=== PATIENT | female | born 1935 ===

== ENCOUNTER 2017-09-29 19:48 | Emergency (ER) | payer MEDICARE ==
--- NOTE | 2017-09-29 20:27 | C.PDOC ---
History Of Present Illness 81 year old female presents to the ED s/p falling at home. Patient reports she does not remember how she fell or what happened. Patient denies tripping, LOC, headache, visual changes, CP, SOB, palpitations. - HPI Chief Complaint (Nursing): Trauma History Per: Patient History/Exam Limitations: no limitations Onset/Duration Of Symptoms: Hrs Injury Occurred (Timing): Just Before Arrival Location Of Injury: Left: Face (lip) Recent travel outside of the [place]: No Additional History Per: Patient Past Medical History Reviewed: Historical Data, Nursing Documentation, Vital Signs Vital Signs: Last Vital Signs Temp 99.0 F 09/29/17 22:54 Pulse 71 09/29/17 23:16 Resp 19 09/29/17 23:16 BP 193/73 H 09/29/17 23:16 Pulse Ox 100 09/29/17 23:26 - Medical History PMH: HTN Surgical History: No Surg Hx Family History: States: Unknown Family Hx - Social History Hx Alcohol Use: No Hx Substance Use: No Review Of Systems Constitutional: Negative for: Fever, Chills Eyes: Negative for: Vision Change Cardiovascular: Negative for: Chest Pain, Palpitations Respiratory: Negative for: Shortness of Breath Skin: Positive for: Other (laceration) Neurological: Negative for: Headache, Dizziness Physical Exam - Physical Exam Appears: Non-toxic, No Acute Distress Skin: Normal Color, Warm, Dry Head: Atraumatic, Normacephalic Eye(s): bilateral: Normal Inspection, PERRL, EOMI Nose: No Discharge Oral Mucosa: Moist Lips: Laceration (2.5 cm upper lip) Neck: Normal ROM, No Midline Cervical Tenderness, Supple Chest: Symmetrical Cardiovascular: Rhythm Regular, No Murmur Respiratory: Normal Breath Sounds, No Rales, No Rhonchi, No Wheezing Gastrointestinal/Abdominal: Soft, No Tenderness, No Guarding, No Rebound Extremity: Normal ROM, No Tenderness, No Swelling Neurological/Psych: Oriented x3 Gait: Steady ED Course And Treatment - Laboratory Results Result Diagrams: 09/29/17 20:34 09/29/17 20:34 ECG: Interpreted By Me, Viewed By Me ECG Rhythm: Sinus Rhythm ECG Interpretation: Normal, No Acute Changes Interpretation Of ECG: NSR, normal tracings. Rate From EC (BPM) O2 Sat by Pulse Oximetry: 100 (ON RA) Pulse Ox Interpretation: Normal Progress Note: Patient refuses to be admitted, spoke with patient's son who states they will follow up with Dr. Camara tomorrow and he observe patient during the night. Laceration - Laceration Repair Upper Lip Wound Length (In cm): 2.5cm Description Of Wound: Linear Wound Cleansed With: Betadine, Sterile Saline Anesthesia: Lidocaine 1% Wound Examination: Irrigated With Saline, No FB With Wound Exploration Wound Closure: Suture (4) Suture Technique And Material Used: Nylon (6-o) Wound Complexity: Simple Medical Decision Making Medical Decision Making: Plan: * CT head * EKG * tetanus * UA * LAbs Disposition Discussed With Dr.: Soha Camara Doctor Will See Patient In The: Office Counseled Patient/Family Regarding: Diagnosis - Disposition Referrals: Soha Camara MD [Staff Provider] - Disposition: HOME/ ROUTINE Disposition Time: 23:30 Condition: STABLE Instructions: Laceration Repair, Laceration Repair With Stitches (DC) Forms: [email or web address] (Ma[place]) - POA Present On Arrival: None - Clinical Impression Clinical Impression: Laceration of lip, Renal insufficiency, Diabetes mellitus - Scribe Statement The provider has reviewed the documentation as recorded by the Scribe Milton Emmanuel All medical record entries made by the Scribe were at my direction and personally dictated by me. I have reviewed the chart and agree that the record accurately reflects my personal performance of the history, physical exam, medical decision making, and the department course for this patient. I have also personally directed, reviewed, and agree with the discharge instructions and disposition.
[2017-09-29] MEDS ORDERED: Tdap Vaccine 0.5 ml Vial (10-64 yrs) IM ONE ×2 (20:28→20:44)
[2017-09-29 20:37] LABS: BASO % 0.6 % (0.0-2.0); EOS # 0.1 K/uL (0.0-0.7); EOS % 1.1 % (0.0-4.0); LYMPH # 0.9 K/uL (1.0-4.3); LYMPH % 12.1 % (20.0-40.0); MEAN CELL VOLUME 78.2 fL (81.0-99.0); MEAN CORPUSCULAR HEMOGLOBIN 25.9 pg (27.0-31.0); MEAN CORPUSCULAR HGB CONC 33.1 g/dL (33.0-37.0); MEAN PLATELET VOLUME 7.7 fL (7.2-11.7); MONO # 0.5 K/uL (0.0-0.8); MONO % 6.2 % (0.0-10.0); NEUT # 6.1 K/uL (1.8-7.0); RBC 3.86 Mil/uL (3.80-5.20); RED CELL DISTRIBUTION WIDTH 17.3 % (11.5-14.5); WHITE BLOOD COUNT 7.6 K/uL (4.8-10.8)
[2017-09-29 20:54] LABS: ALB/GLOB RATIO 1.2 (1.0-2.1); CALCIUM 10.1 mg/dl (8.6-10.4)
[2017-09-29] MEDS ORDERED: Labetalol 25mg/5ml Syringe IVP STA ×2 (21:08→22:58)
[2017-09-29] MEDS ORDERED: Labetalol 25mg/5ml Syringe ONE ×2 (21:10→23:01)
[2017-09-29] MEDS ORDERED: Lidocaine Hydrochloride 5 ML INJ ONE (21:11)
[2017-09-29] MEDS ORDERED: Bacitracin 500 Units/gm Oint Foilpak UD TOP ONE (21:28)
[2017-09-29] MEDS ORDERED: Bacitracin 500 Units/gm Oint Foilpak UD ONE (21:33)
--- NOTE | 2017-09-29 22:43 | CT ---
EXAM: CT Head Without Intravenous Contrast CLINICAL HISTORY: 81 years old, female; Pain; Headache; Headache not specified TECHNIQUE: Axial computed tomography images of the head/brain without intravenous contrast. All CT scans at this facility use one or more dose reduction techniques, viz.: automated exposure control; ma/kV adjustment per patient size (including targeted exams where dose is matched to indication; i.e. head); or iterative reconstruction technique. COMPARISON: No relevant prior studies available. FINDINGS: Brain: There is mild diffuse cerebral atrophy present, consistent with this patient's age. There is mild diffuse heterogeneity of the white matter attenuation, consistent with chronic white matter ischemic changes. No hemorrhage. Ventricles: The ventricular system demonstrates mild diffuse compensatory enlargement. Bones/joints: Unremarkable. No acute fracture. Soft tissues: Unremarkable. Sinuses: Unremarkable as visualized. No acute sinusitis. Mastoid air cells: Unremarkable as visualized. No mastoid effusion. IMPRESSION: Age-related atrophy and chronic white matter ischemic changes, with no evidence of an acute intracranial abnormality.
[2017-09-29 23:04] VITALS: TEMP 99
[2017-09-29 23:19] VITALS: O2SAT 100
[2017-09-29 23:46] VITALS: BP 224/83; PULSE 72; RESP 17
--- NOTE | 2017-10-03 15:33 | CARD ---
APPROVED REPORT EKG Measurement Heart [id number] <Conclusion> Normal sinus rhythm Normal ECG
== END 2017-09-29 23:48 | disposition home or self-care (01) ==
LOC: C.ER 19:48
DX: S01.511A Laceration without foreign body of lip, initial encounter (principal); W19.XXXA Unspecified fall, initial encounter; Y92.009 Unspecified place in unspecified non-institutional (private) residence as the place of occurrence of the external cause; Z23 Encounter for immunization; N28.9 Disorder of kidney and ureter, unspecified; E11.9 Type 2 diabetes mellitus without complications; I10 Essential (primary) hypertension

== ENCOUNTER 2017-10-11 13:53 | Inpatient (IN) | payer MEDICARE ==
--- NOTE | 2017-10-11 14:53 | C.PDOC ---
History Of Present Illness 81 year old female presents to the ED after being referred by her PMD for admission. Per PMD, patient has history of chronic renal insufficiency but is currently not on dialysis. She has been experiencing worsening vomiting and weight loss since May 2017. Patient is complaining of generalized malaise. She denies fever, chills, pain, or changes in appetite. PMD: Dr. Camara Nut Threader: Dr. Burciaga Time Seen by Provider: 10/11/17 14:22 Chief Complaint (Nursing): Abdominal Pain History Per: Patient History/Exam Limitations: no limitations Onset/Duration Of Symptoms: Days Current Symptoms Are (Timing): Worse Quality Of Discomfort: denies: "Pain" Associated Symptoms: Vomiting. denies: Fever, Chills Additional History Per: Patient Past Medical History Reviewed: Historical Data, Nursing Documentation, Vital Signs Vital Signs: Last Vital Signs Temp 98.3 F 10/16/17 07:43 Pulse 88 10/16/17 07:43 Resp 20 10/16/17 07:43 BP 165/81 H 10/16/17 07:43 Pulse Ox 99 10/16/17 07:43 - Medical History PMH: HTN, Chronic Kidney Disease Surgical History: No Surg Hx Family History: States: Unknown Family Hx - Social History Hx Alcohol Use: No Hx Substance Use: No Review Of Systems Constitutional: Positive for: Malaise, Weight loss. Negative for: Other ( changes in appetite ) Gastrointestinal: Positive for: Vomiting. Negative for: Abdominal Pain Physical Exam - Physical Exam Appears: Non-toxic, No Acute Distress Skin: Normal Color, Warm, Dry Head: Atraumatic, Normacephalic Eye(s): bilateral: Normal Inspection Oral Mucosa: Moist Neck: Supple Chest: Symmetrical, No Deformity, No Tenderness Cardiovascular: Rhythm Regular, No Murmur Respiratory: Normal Breath Sounds, No Rales, No Rhonchi, No Wheezing Gastrointestinal/Abdominal: Soft, No Tenderness, No Guarding, No Rebound Extremity: Normal ROM, Capillary Refill (less than 2 seconds ) Neurological/Psych: Oriented x3, Normal Speech, Normal Cognition ED Course And Treatment - Laboratory Results Result Diagrams: 10/16/17 11:32 10/16/17 11:32 ECG: Interpreted By Me, Viewed By Me ECG Rhythm: Sinus Rhythm Rate From EC O2 Sat by Pulse Oximetry: 100 (on RA) Pulse Ox Interpretation: Normal - Radiology CXR: Interpreted by Me, Viewed By Me CXR Interpretation: Yes: No Acute Disease Progress Note: Bloodwork, urinalysis, CXR and EKG ordered and reviewed. Disposition Counseled Patient/Family Regarding: Studies Performed, Diagnosis - Disposition Disposition: HOSPITALIZED Disposition Time: 15:10 Condition: GOOD - Clinical Impression Clinical Impression: Intractable vomiting, Renal insufficiency - Scribe Statement The provider has reviewed the documentation as recorded by the Scribe (Amy Judge) Provider Attestation: All medical record entries made by the Scribe were at my direction and personally dictated by me. I have reviewed the chart and agree that the record accurately reflects my personal performance of the history, physical exam, medical decision making, and the department course for this patient. I have also personally directed, reviewed, and agree with the discharge instructions and disposition.
[2017-10-11 15:06] LABS: BASO # 0.1 K/uL (0.0-0.2); BASO % 0.9 % (0.0-2.0); EOS # 0.1 K/uL (0.0-0.7); EOS % 1.7 % (0.0-4.0); HEMOGLOBIN 10.4 g/dL (11.0-16.0); LYMPH # 1.4 K/uL (1.0-4.3); LYMPH % 20.8 % (20.0-40.0); MEAN CELL VOLUME 79.1 fL (81.0-99.0); MEAN CORPUSCULAR HEMOGLOBIN 26.7 pg (27.0-31.0); MEAN CORPUSCULAR HGB CONC 33.8 g/dL (33.0-37.0); MEAN PLATELET VOLUME 7.9 fL (7.2-11.7); MONO # 0.4 K/uL (0.0-0.8); MONO % 6.8 % (0.0-10.0); NEUT # 4.7 K/uL (1.8-7.0); NEUT % 69.8 % (50.0-75.0); RBC 3.88 Mil/uL (3.80-5.20); RED CELL DISTRIBUTION WIDTH 16.8 % (11.5-14.5); WHITE BLOOD COUNT 6.7 K/uL (4.8-10.8)
[2017-10-11 15:24] LABS: ALB/GLOB RATIO 1.3 (1.0-2.1); ALBUMIN 4.9 g/dL (3.5-5.0); ALT/SGPT < 6 U/L (9-52); AST/SGOT 26 U/L (14-36); BLOOD UREA NITROGEN 35 mg/dL (7-17); CALCIUM 9.3 mg/dl (8.6-10.4); GFR AFRICAN-AMERICAN 19; GFR NON-AFRICAN AMERICAN 16
--- NOTE | 2017-10-11 15:30 | RAD ---
PROCEDURE: CHEST RADIOGRAPH, 1 VIEW HISTORY: SOB COMPARISON: None available. FINDINGS: LUNGS: Clear. PLEURA: No pneumothorax or pleural fluid seen. CARDIOVASCULAR: Normal. OSSEOUS STRUCTURES: No significant abnormalities. VISUALIZED UPPER ABDOMEN: Normal. OTHER FINDINGS: None. IMPRESSION: No active disease.
[2017-10-11] MEDS: Sodium Chloride 0.45% 1,000 ML IV SCH (18:41)
--- NOTE | 2017-10-11 18:46 | US ---
PROCEDURE: Ultrasound of the Kidneys HISTORY: Chronic insufficiency. COMPARISON: None available. TECHNIQUE: Sonogram of the kidneys. FINDINGS: RIGHT KIDNEY: Measures: 3.6 x 4.6 x 8.5 cm. Mildly atrophic echogenic kidney. Echogenic focus upper pole 5 mm likely nonobstructing calculus. Incidental finding(s): Lower pole cyst 1 cm. LEFT KIDNEY: Measures: 4.7 x 4 x 9.4 cm. Mildly atrophic, echogenic kidney. No stone, solid mass lesion or hydronephrosis visualized. Incidental finding(s): Lower pole cyst 7 x 11 mm. OTHER FINDINGS: None. IMPRESSION: Mildly atrophic echogenic kidneys bilaterally consistent medical renal disease. Nonobstructing upper pole calculus 5 mm right kidney. Additional benign and/or incidental findings described above.
[2017-10-11] MEDS: Albuterol-Ipratrop 3 mg / 0.5 (3 ml) UD INH SCH (20:52)
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
[2017-10-11] MEDS: (Novolin R) Insulin Human Regular 100 units/ml vial SC SCH (21:39)
[2017-10-12] MEDS: Albuterol-Ipratrop 3 mg / 0.5 (3 ml) UD INH SCH ×4 (01:42→19:35)
[2017-10-12] MEDS: Sodium Chloride 0.45% 1,000 ML IV SCH ×2 (04:54→04:55)
[2017-10-12] MEDS: Levothyroxine 50 MCG TAB PO SCH (05:36)
[2017-10-12 06:30] LABS: BASO # 0.1 K/uL (0.0-0.2); BASO % 0.8 % (0.0-2.0); EOS # 0.2 K/uL (0.0-0.7); EOS % 2.5 % (0.0-4.0); HEMOGLOBIN 10.3 g/dL (11.0-16.0); LYMPH # 1.3 K/uL (1.0-4.3); LYMPH % 20.2 % (20.0-40.0); MEAN CORPUSCULAR HEMOGLOBIN 26.4 pg (27.0-31.0); MEAN CORPUSCULAR HGB CONC 33.3 g/dL (33.0-37.0); MONO # 0.5 K/uL (0.0-0.8); MONO % 7.8 % (0.0-10.0); NEUT # 4.4 K/uL (1.8-7.0); NEUT % 68.7 % (50.0-75.0); RBC 3.91 Mil/uL (3.80-5.20); RED CELL DISTRIBUTION WIDTH 16.9 % (11.5-14.5); WHITE BLOOD COUNT 6.4 K/uL (4.8-10.8)
[2017-10-12 07:22] LABS: CK-MB 1.43 ng/mL (0.0-3.38)
[2017-10-12 07:29] LABS: ALB/GLOB RATIO 1.3 (1.0-2.1); ALBUMIN 4.5 g/dL (3.5-5.0); ALT/SGPT < 6 U/L (9-52); AST/SGOT 34 U/L (14-36); BLOOD UREA NITROGEN 30 mg/dL (7-17); GFR AFRICAN-AMERICAN 24; GFR NON-AFRICAN AMERICAN 19; LIPASE 134 U/L (23-300)
--- NOTE | 2017-10-12 07:33 | CP.PCM.CON ---
<Kash Judge - Last Filed: 10/12/17 08:50> History of Present Illness - History of Present Illness History of Present Illness: PGY4 Initial GI Consult Note Reason for consult: Intractable vomiting, nausea Shirley Garcia is a 81F w/ a hx of diabetes, hypertension, hypercholesteremia , severe osteoarthritis, chronic renal insufficiency who presented to her PCP office with complaints of intractable nausea and vomiting for the past 2-3 months. Pt states that the onset was insidious. Initially, she noted intermittent episodes, but progressed to daily. She notes for the past few weeks that her nausea and vomiting has been occurring multiple times a day, She states that its mostly post prandial. She described having bilious emesis with occasional food particles. Denies any hematemesis or coffee-ground emesis. Denies any abd pain. She notes losing weight, but does not recall amount. She denies any recent travel, sick contacts, consumption of undercooked meat. Denies any dysphagia or GERD. Denies any recent NSAID or anticoag use. Never had a colonoscopy or endoscopy. PMHx: Diabetes hypertension and hypercholesterolemia osteoarthritis chronic renal insufficiency, uncontrolled diabetes and hypertension. SHx:right knee arthroscopy surgery FHx: Reviewed; Denies any GI related malignancy Social hx: denies any ETOH, smoking or illicit drug use Endo Hx: none ROS: 12 point ROS conducted, neg other than above Past Patient History - Infectious Disease Hx of Infectious Diseases: None - Past Medical History & Family History Past Medical History?: Yes - Past Social History Smoking Status: Never Smoked - CARDIAC Hx Hypertension: Yes - PULMONARY Hx Asthma: Yes - RENAL Hx Chronic Kidney Disease: Yes - ENDOCRINE/METABOLIC Hx Diabetes Mellitus Type 2: Yes - HEMATOLOGICAL/ONCOLOGICAL Hx Blood Disorders: No - INTEGUMENTARY Hx Dermatological Problems: No - MUSCULOSKELETAL/RHEUMATOLOGICAL Hx Falls: Yes - GASTROINTESTINAL Hx Nausea: Yes Hx Vomiting: Yes - GENITOURINARY/GYNECOLOGICAL Hx Genitourinary Disorders: No - PSYCHIATRIC Hx Substance Use: No - SURGICAL HISTORY Hx Surgeries: Yes Hx Orthopedic Surgery: Yes - ANESTHESIA Hx Anesthesia: Yes Hx Anesthesia Reactions: No Meds Allergies/Adverse Reactions: Allergies Allergy/AdvReac Type Severity Reaction Status Date / Time No Known Allergies Allergy Verified 10/11/17 14:18 - Medications Medications: Current Medications Albuterol/Ipratropium (Duoneb 3 Mg/0.5 Mg (3 Ml) Ud) 3 ml INH RQ6 [facility] Last Admin: 10/12/17 07:24 Dose: Not Given Amlodipine Besylate (Norvasc) 10 mg PO DAILY [facility] Carvedilol (Coreg) 6.25 mg PO BID [facility] Last Admin: 10/11/17 18:40 Dose: 6.25 mg Fenofibrate (Tricor) 48 mg PO QPM [facility] Last Admin: 10/11/17 18:41 Dose: 48 mg Glipizide (Glucotrol) 5 mg PO ACB [facility] Heparin Sodium (Porcine) (Heparin) 5,000 units SC Q12 [facility] Hydralazine HCl (Apresoline) 25 mg PO QID [facility] Last Admin: 10/11/17 21:36 Dose: 25 mg Sodium Chloride (Sodium Chloride 0.45%) 1,000 mls @ 100 mls/hr IV .Q10H [facility] Last Admin: 10/12/17 04:55 Dose: Not Given Insulin Human Regular (Novolin R) 0 unit SC ACHS [facility] PRN Reason: Protocol Last Admin: 10/11/17 21:39 Dose: Not Given Levothyroxine Sodium (Synthroid) 50 mcg PO DAILY@0630 [facility] Last Admin: 10/12/17 05:36 Dose: 50 mcg Ondansetron HCl (Zofran Inj) 4 mg IVP Q8 PRN PRN Reason: Nausea/Vomiting Rosuvastatin Calcium (Crestor) 5 mg PO HS [facility] Last Admin: 10/11/17 21:36 Dose: 5 mg Physical Exam - Constitutional Appears: Well, No Acute Distress - Head Exam Head Exam: ATRAUMATIC, NORMOCEPHALIC - Eye Exam Eye Exam: Normal appearance - ENT Exam ENT Exam: Mucous Membranes Moist Additional comments: stitches and scar, healing upper lip lacteration - Neck Exam Neck exam: Positive for: Normal Inspection - Respiratory Exam Respiratory Exam: Clear to Auscultation Bilateral, NORMAL BREATHING PATTERN. absent: Rales, Rhonchi, Wheezes, Respiratory Distress - Cardiovascular Exam Cardiovascular Exam: REGULAR RHYTHM, +S1, +S2 - GI/Abdominal Exam GI & Abdominal Exam: Normal Bowel Sounds, Soft. absent: Diminished Bowel Sounds , Distended, Guarding, Organomegaly, Pulsatile Mass, Rebound, Rigid, Tenderness - Extremities Exam Extremities exam: Negative for: joint swelling, pedal edema - Neurological Exam Neurological exam: Alert, Oriented x3 - Psychiatric Exam Psychiatric exam: Normal Affect, Normal Mood - Skin Skin Exam: Dry, Intact, Normal Color, Warm Results - Vital Signs Recent Vital Signs: Last Vital Signs Temp 98.2 F 10/12/17 00:00 Pulse 83 10/12/17 00:00 Resp 20 10/12/17 00:00 BP 160/69 H 10/12/17 00:00 Pulse Ox 100 10/12/17 00:00 - Labs Result Diagrams: 10/12/17 06:24 10/12/17 06:24 Labs: Laboratory Results - last 24 hr 10/11/17 10/11/17 10/11/17 15:02 15:02 21:38 WBC 6.7 RBC 3.88 Hgb 10.4 L Hct 30.7 L MCV 79.1 L MCH 26.7 L MCHC 33.8 RDW 16.8 H Plt Count 328 MPV 7.9 Neut % (Auto) 69.8 Lymph % (Auto) 20.8 [place] % (Auto) 6.8 Eos % (Auto) 1.7 Baso % (Auto) 0.9 Neut # (Auto) 4.7 Lymph # (Auto) 1.4 [place] # (Auto) 0.4 Eos # (Auto) 0.1 Baso # (Auto) 0.1 Sodium 139 Potassium 5.2 Chloride 102 Carbon Dioxide 18 L Anion Gap 24 H BUN 35 H Creatinine 2.9 H Est GFR ( Amer) 19 Est GFR (Non-Af Amer) 16 POC Glucose (mg/dL) 136 H Random Glucose 145 H Calcium 9.3 Total Bilirubin 0.6 AST 26 ALT < 6 L D Alkaline Phosphatase 52 Total Creatine Kinase CK-MB (Mass) Total Protein 8.6 H Albumin 4.9 Globulin 3.7 Albumin/Globulin Ratio 1.3 Lipase 10/12/17 10/12/17 06:24 06:24 WBC 6.4 RBC 3.91 Hgb 10.3 L Hct 30.9 L MCV 79.0 L MCH 26.4 L MCHC 33.3 RDW 16.9 H Plt Count 314 MPV 8.0 Neut % (Auto) 68.7 Lymph % (Auto) 20.2 [place] % (Auto) 7.8 Eos % (Auto) 2.5 Baso % (Auto) 0.8 Neut # (Auto) 4.4 Lymph # (Auto) 1.3 [place] # (Auto) 0.5 Eos # (Auto) 0.2 Baso # (Auto) 0.1 Sodium 143 Potassium 4.7 Chloride 107 Carbon Dioxide 16 L Anion Gap 24 H BUN 30 H Creatinine 2.4 H Est GFR ( Amer) 24 Est GFR (Non-Af Amer) 19 POC Glucose (mg/dL) Random Glucose 118 H Calcium 9.0 Total Bilirubin 0.7 AST 34 ALT < 6 L Alkaline Phosphatase 42 Total Creatine Kinase 44 CK-MB (Mass) 1.43 Total Protein 7.9 Albumin 4.5 Globulin 3.5 Albumin/Globulin Ratio 1.3 Lipase 134 Assessment & Plan - Assessment and Plan (Free Text) Assessment: Shirley Garcia is a 81F w/ a hx of diabetes, hypertension, hypercholesteremia , severe osteoarthritis, chronic renal insufficiency who presented to her PCP office with complaints of intractable nausea and vomiting for the past 2-3 months. Intractable nausea and vomiting, r/o malignancy, PUD; r/o subdural hematoma weightloss CKD hx of DM Plan: -keep NPO -for EGD today -continue protonix 40mg PO daily -recommend hgb A1c -may benefit from imaging, CT chest/abd/pelvis; head to rule out slow bleed -rest of care as per primary team -will eventually need colonoscopy, but can be done as an oupt -will wait on EGD results for further recommendations Will D/W Dr. Swenson <Hernán Swenson Y - Last Filed: 10/12/17 11:01> Meds - Medications Medications: Current Medications Albuterol/Ipratropium (Duoneb 3 Mg/0.5 Mg (3 Ml) Ud) 3 ml INH RQ6 [facility] Last Admin: 10/12/17 07:24 Dose: Not Given Amlodipine Besylate (Norvasc) 10 mg PO DAILY [facility] Last Admin: 10/12/17 09:44 Dose: 10 mg Carvedilol (Coreg) 6.25 mg PO BID [facility] Last Admin: 10/12/17 09:44 Dose: 6.25 mg Fenofibrate (Tricor) 48 mg PO QPM [facility] Last Admin: 10/11/17 18:41 Dose: 48 mg Glipizide (Glucotrol) 5 mg PO ACB [facility] Last Admin: 10/12/17 08:17 Dose: Not Given Heparin Sodium (Porcine) (Heparin) 5,000 units SC Q12 [facility] Last Admin: 10/12/17 09:47 Dose: Not Given Hydralazine HCl (Apresoline) 25 mg PO QID [facility] Last Admin: 10/12/17 09:44 Dose: 25 mg Sodium Chloride (Sodium Chloride 0.45%) 1,000 mls @ 100 mls/hr IV .Q10H [facility] Last Admin: 10/12/17 04:55 Dose: Not Given Insulin Human Regular (Novolin R) 0 unit SC ACHS [facility] PRN Reason: Protocol Last Admin: 10/12/17 08:01 Dose: Not Given Levothyroxine Sodium (Synthroid) 50 mcg PO DAILY@0630 [facility] Last Admin: 10/12/17 05:36 Dose: 50 mcg Ondansetron HCl (Zofran Inj) 4 mg IVP Q8 PRN PRN Reason: Nausea/Vomiting Rosuvastatin Calcium (Crestor) 5 mg PO HS [facility] Last Admin: 10/11/17 21:36 Dose: 5 mg Results - Vital Signs Recent Vital Signs: Last Vital Signs Temp 97.5 F L 10/12/17 08:00 Pulse 78 10/12/17 08:00 Resp 20 10/12/17 08:00 BP 177/71 H 10/12/17 08:00 Pulse Ox 99 10/12/17 08:00 - Labs Result Diagrams: 10/12/17 06:24 10/12/17 06:24 Labs: Laboratory Results - last 24 hr 10/11/17 10/11/17 10/11/17 15:02 15:02 21:38 WBC 6.7 RBC 3.88 Hgb 10.4 L Hct 30.7 L MCV 79.1 L MCH 26.7 L MCHC 33.8 RDW 16.8 H Plt Count 328 MPV 7.9 Neut % (Auto) 69.8 Lymph % (Auto) 20.8 [place] % (Auto) 6.8 Eos % (Auto) 1.7 Baso % (Auto) 0.9 Neut # (Auto) 4.7 Lymph # (Auto) 1.4 [place] # (Auto) 0.4 Eos # (Auto) 0.1 Baso # (Auto) 0.1 Sodium 139 Potassium 5.2 Chloride 102 Carbon Dioxide 18 L Anion Gap 24 H BUN 35 H Creatinine 2.9 H Est GFR ( Amer) 19 Est GFR (Non-Af Amer) 16 POC Glucose (mg/dL) 136 H Random Glucose 145 H Calcium 9.3 Total Bilirubin 0.6 AST 26 ALT < 6 L D Alkaline Phosphatase 52 Total Creatine Kinase CK-MB (Mass) Troponin I Total Protein 8.6 H Albumin 4.9 Globulin 3.7 Albumin/Globulin Ratio 1.3 Lipase 10/12/17 10/12/17 10/12/17 06:24 06:24 07:04 WBC 6.4 RBC 3.91 Hgb 10.3 L Hct 30.9 L MCV 79.0 L MCH 26.4 L MCHC 33.3 RDW 16.9 H Plt Count 314 MPV 8.0 Neut % (Auto) 68.7 Lymph % (Auto) 20.2 [place] % (Auto) 7.8 Eos % (Auto) 2.5 Baso % (Auto) 0.8 Neut # (Auto) 4.4 Lymph # (Auto) 1.3 [place] # (Auto) 0.5 Eos # (Auto) 0.2 Baso # (Auto) 0.1 Sodium 143 Potassium 4.7 Chloride 107 Carbon Dioxide 16 L Anion Gap 24 H BUN 30 H Creatinine 2.4 H Est GFR ( Amer) 24 Est GFR (Non-Af Amer) 19 POC Glucose (mg/dL) 139 H Random Glucose 118 H Calcium 9.0 Total Bilirubin 0.7 AST 34 ALT < 6 L Alkaline Phosphatase 42 Total Creatine Kinase 44 CK-MB (Mass) 1.43 Troponin I 0.0140 Total Protein 7.9 Albumin 4.5 Globulin 3.5 Albumin/Globulin Ratio 1.3 Lipase 134 Attending/Attestation - Attestation I have personally seen and examined this patient.: Yes I have fully participated in the care of the patient.: Yes I have reviewed all pertinent clinical information: Yes Notes (Text): 10/12/17 10:56 I have seen and examined patient with GI fellow. Agree with above documentation with the following additions. In brief, this is an 81 year old female with history of DM, HTN, osteoarthritis, CKD, who presents to hospital with progressive nausea and vomiting. Symptoms started 2-3 months ago which initially were intermittent happening a few times per week but recently has progressed to daily symptoms with multiple (greater than 3 times daily) episodes. She denies associated abdominal pain and claims that the vomiting tends to occur mainly post prandial but cannot identify specific food types. She denies fever/chills, rectal bleeding, or NSAID use. She does endorse weight loss during this time period but not able to quantify amount. No prior endoscopic evaluation. Review of vitals from today shows elevated BP. HTN / DM CKD Osteoarthritis Persistent vomiting - unclear etiology Weight loss, unexplained - Continue with PPI therapy - NPO - Will plan for EGD evaluation today given progressive symptoms without obvious etiology - Would consider cross sectional imaging for further evaluation if endoscopic workup is negative - Will continue to monitor patient clinical course
[2017-10-12] MEDS: (Novolin R) Insulin Human Regular 100 units/ml vial SC SCH ×4 (08:01→22:16)
[2017-10-12] MEDS ORDERED: Propofol 10 mg/ml Inj (20 ML) ONE (12:10)
--- NOTE | 2017-10-12 12:17 | VASCLAB ---
PROCEDURE: HISTORY: Dizziness COMPARISON: None available. TECHNIQUE: Grayscale and duplex Doppler evaluation of the cervical carotid and vertebral arteries were performed. The common carotid, carotid bifurcations and cervical Internal Carotid Artery (ICA) and proximal External Carotid Artery (ECA) were evaluated. The vertebral arteries were evaluated for gross patency and flow direction. Report prepared by Tommie Mathis, BS, RVT FINDINGS: RIGHT CAROTID ARTERIES: 1. Common Carotid Artery: No significant focal plaque formation of the right common carotid artery. Maximum Peak Systolic velocity: 73 cm/sec: End-diastolic velocity 10 cm/sec. 2. Carotid Bifurcation: plaque formation. Maximum Peak Systolic velocity: 57 cm/sec: End-diastolic velocity 9 cm/sec. 3. Internal Carotid Artery: Plaque description: Homogeneous 3.1. Proximal Segment: Peak systolic velocity 71 cm/sec: End-diastolic velocity 10 cm/sec - % stenosis 0-15% 3.2. Middle Segment: Peak systolic velocity 84 cm/sec: End-diastolic velocity 17 cm/sec - % stenosis 0-15% 3.3. Distal Segment: Peak systolic velocity 99 cm/sec: End-diastolic velocity 22 cm/sec - % stenosis 0-15% 4. External Carotid Artery: Calcific plaque formation. Peak systolic velocity 97 cm/sec 5. ICA/CCA Ratio: 1.6 LEFT CAROTID ARTERIES: 1. Common Carotid Artery: No significant focal plaque formation of the left common carotid artery. Maximum Peak Systolic velocity: 92 cm/sec: End-diastolic velocity 14 cm/sec. 2. Carotid Bifurcation: plaque formation. Maximum Peak Systolic velocity: cm/sec: End-diastolic velocity cm/sec. 3. Internal Carotid Artery: Plaque description: 3.1. Proximal Segment: Peak systolic velocity 80 cm/sec: End-diastolic velocity 17 cm/sec - % stenosis 0-15% 3.2. Middle Segment: Peak systolic velocity 45 cm/sec: End-diastolic velocity 11 cm/sec - % stenosis 0-15% 3.3. Distal Segment: Peak systolic velocity 88 cm/sec: End-diastolic velocity 23 cm/sec - % stenosis 0-15% 4. External Carotid Artery: Calcific plaque formation. Peak systolic velocity 67 cm/sec 5. ICA/CCA Ratio: VERTEBRAL ARTERIES: 1. Right Vertebral Artery: The right vertebral artery flow direction is antegrade. 2. Left Vertebral Artery: The left vertebral artery flow direction is antegrade. OTHER FINDINGS: 1. Right Brachial Blood pressure: 174 mmHg. 2. Left Brachial Blood pressure: 172 mmHg. IMPRESSION: RIGHT: Duplex scan does not suggest hemodynamically significant stenosis of the right extracranial carotid arteries. LEFT: Duplex scan does not suggest hemodynamically significant stenosis of the left extracranial carotid arteries.
--- NOTE | 2017-10-12 12:45 | CP.PCM.CON ---
History of Present Illness - History of Present Illness History of Present Illness: consultation for renal failure Shirley Garcia is a 81F w/ a hx of diabetes, hypertension, hypercholesteremia , severe osteoarthritis, chronic renal insufficiency who presented to her PCP office with complaints of intractable nausea and vomiting for the past 2-3 months. Pt was found to have a creatinine of 2.9 mg/dl on presentation, down to 2.4 mg/dl w/ iv fluids. no sob/dysuria/hematuria/cp/cough/abd pain/rash REnal US remarkable for renal atrophy, non obstructive stones. Pt not on NSAIDS or ACEI/ARB She doesnt recall any prior hx of kidney failure or kidney stones PMHx: Diabetes hypertension and hypercholesterolemia osteoarthritis chronic renal insufficiency, uncontrolled diabetes and hypertension. SHx:right knee arthroscopy surgery FHx: Reviewed; Denies any GI related malignancy Social hx: denies any ETOH, smoking or illicit drug use Endo Hx: none ROS: 12 point ROS conducted, neg other than above Past Patient History - Infectious Disease Hx of Infectious Diseases: None - Past Medical History & Family History Past Medical History?: Yes - Past Social History Smoking Status: Never Smoked - CARDIAC Hx Hypertension: Yes - PULMONARY Hx Asthma: Yes - RENAL Hx Chronic Kidney Disease: Yes - ENDOCRINE/METABOLIC Hx Diabetes Mellitus Type 2: Yes - HEMATOLOGICAL/ONCOLOGICAL Hx Blood Disorders: No - INTEGUMENTARY Hx Dermatological Problems: No - MUSCULOSKELETAL/RHEUMATOLOGICAL Hx Falls: Yes - GASTROINTESTINAL Hx Nausea: Yes Hx Vomiting: Yes - GENITOURINARY/GYNECOLOGICAL Hx Genitourinary Disorders: No - PSYCHIATRIC Hx Substance Use: No - SURGICAL HISTORY Hx Surgeries: Yes Hx Orthopedic Surgery: Yes - ANESTHESIA Hx Anesthesia: Yes Hx Anesthesia Reactions: No Meds Allergies/Adverse Reactions: Allergies Allergy/AdvReac Type Severity Reaction Status Date / Time No Known Allergies Allergy Verified 10/11/17 14:18 - Medications Medications: Current Medications Albuterol/Ipratropium (Duoneb 3 Mg/0.5 Mg (3 Ml) Ud) 3 ml INH RQ6 [facility] Last Admin: 10/12/17 07:24 Dose: Not Given Amlodipine Besylate (Norvasc) 10 mg PO DAILY [facility] Last Admin: 10/12/17 09:44 Dose: 10 mg Carvedilol (Coreg) 6.25 mg PO BID [facility] Last Admin: 10/12/17 09:44 Dose: 6.25 mg Fenofibrate (Tricor) 48 mg PO QPM [facility] Last Admin: 10/11/17 18:41 Dose: 48 mg Glipizide (Glucotrol) 5 mg PO ACB [facility] Last Admin: 10/12/17 08:17 Dose: Not Given Heparin Sodium (Porcine) (Heparin) 5,000 units SC Q12 [facility] Last Admin: 10/12/17 09:47 Dose: Not Given Hydralazine HCl (Apresoline) 25 mg PO QID [facility] Last Admin: 10/12/17 09:44 Dose: 25 mg Sodium Chloride (Sodium Chloride 0.45%) 1,000 mls @ 100 mls/hr IV .Q10H [facility] Last Admin: 10/12/17 04:55 Dose: Not Given Insulin Human Regular (Novolin R) 0 unit SC ACHS [facility] PRN Reason: Protocol Last Admin: 10/12/17 12:15 Dose: Not Given Levothyroxine Sodium (Synthroid) 50 mcg PO DAILY@0630 [facility] Last Admin: 10/12/17 05:36 Dose: 50 mcg Ondansetron HCl (Zofran Inj) 4 mg IVP Q8 PRN PRN Reason: Nausea/Vomiting Rosuvastatin Calcium (Crestor) 5 mg PO HS [facility] Last Admin: 10/11/17 21:36 Dose: 5 mg Physical Exam - Constitutional Appears: Cachectic, Chronically Ill - Head Exam Head Exam: NORMAL INSPECTION, NORMOCEPHALIC - Eye Exam Eye Exam: Normal appearance Pupil Exam: PERRL - ENT Exam ENT Exam: Mucous Membranes Dry, Normal Exam - Neck Exam Neck exam: Positive for: Normal Inspection - Respiratory Exam Respiratory Exam: Clear to Auscultation Bilateral, NORMAL BREATHING PATTERN - Cardiovascular Exam Cardiovascular Exam: REGULAR RHYTHM, RRR - GI/Abdominal Exam GI & Abdominal Exam: Distended, Soft - Extremities Exam Extremities exam: Positive for: full ROM, normal inspection - Neurological Exam Neurological exam: Alert, Oriented x3 - Psychiatric Exam Psychiatric exam: Normal Affect, Normal Mood - Skin Skin Exam: Dry, Intact, Warm Results - Vital Signs Recent Vital Signs: Last Vital Signs Temp 97.5 F L 10/12/17 12:14 Pulse 78 10/12/17 12:14 Resp 20 10/12/17 12:14 BP 177/71 H 10/12/17 12:14 Pulse Ox 99 10/12/17 12:14 - Labs Result Diagrams: 10/12/17 06:24 10/12/17 06:24 Labs: Laboratory Results - last 24 hr 10/11/17 10/11/17 10/11/17 15:02 15:02 21:38 WBC 6.7 RBC 3.88 Hgb 10.4 L Hct 30.7 L MCV 79.1 L MCH 26.7 L MCHC 33.8 RDW 16.8 H Plt Count 328 MPV 7.9 Neut % (Auto) 69.8 Lymph % (Auto) 20.8 [place] % (Auto) 6.8 Eos % (Auto) 1.7 Baso % (Auto) 0.9 Neut # (Auto) 4.7 Lymph # (Auto) 1.4 [place] # (Auto) 0.4 Eos # (Auto) 0.1 Baso # (Auto) 0.1 Sodium 139 Potassium 5.2 Chloride 102 Carbon Dioxide 18 L Anion Gap 24 H BUN 35 H Creatinine 2.9 H Est GFR ( Amer) 19 Est GFR (Non-Af Amer) 16 POC Glucose (mg/dL) 136 H Random Glucose 145 H Calcium 9.3 Total Bilirubin 0.6 AST 26 ALT < 6 L D Alkaline Phosphatase 52 Total Creatine Kinase CK-MB (Mass) Troponin I Total Protein 8.6 H Albumin 4.9 Globulin 3.7 Albumin/Globulin Ratio 1.3 Lipase 10/12/17 10/12/17 10/12/17 06:24 06:24 07:04 WBC 6.4 RBC 3.91 Hgb 10.3 L Hct 30.9 L MCV 79.0 L MCH 26.4 L MCHC 33.3 RDW 16.9 H Plt Count 314 MPV 8.0 Neut % (Auto) 68.7 Lymph % (Auto) 20.2 [place] % (Auto) 7.8 Eos % (Auto) 2.5 Baso % (Auto) 0.8 Neut # (Auto) 4.4 Lymph # (Auto) 1.3 [place] # (Auto) 0.5 Eos # (Auto) 0.2 Baso # (Auto) 0.1 Sodium 143 Potassium 4.7 Chloride 107 Carbon Dioxide 16 L Anion Gap 24 H BUN 30 H Creatinine 2.4 H Est GFR ( Amer) 24 Est GFR (Non-Af Amer) 19 POC Glucose (mg/dL) 139 H Random Glucose 118 H Calcium 9.0 Total Bilirubin 0.7 AST 34 ALT < 6 L Alkaline Phosphatase 42 Total Creatine Kinase 44 CK-MB (Mass) 1.43 Troponin I 0.0140 Total Protein 7.9 Albumin 4.5 Globulin 3.5 Albumin/Globulin Ratio 1.3 Lipase 134 10/12/17 11:16 WBC RBC Hgb Hct MCV MCH MCHC RDW Plt Count MPV Neut % (Auto) Lymph % (Auto) [place] % (Auto) Eos % (Auto) Baso % (Auto) Neut # (Auto) Lymph # (Auto) [place] # (Auto) Eos # (Auto) Baso # (Auto) Sodium Potassium Chloride Carbon Dioxide Anion Gap BUN Creatinine Est GFR ( Amer) Est GFR (Non-Af Amer) POC Glucose (mg/dL) 139 H Random Glucose Calcium Total Bilirubin AST ALT Alkaline Phosphatase Total Creatine Kinase CK-MB (Mass) Troponin I Total Protein Albumin Globulin Albumin/Globulin Ratio Lipase Assessment & Plan (1) Hypertension Status: Acute (2) Vomiting Status: Acute (3) Dehydration Status: Acute (4) Diabetes mellitus Status: Acute (5) Renal insufficiency Status: Acute - Assessment and Plan (Free Text) Assessment: maintain ivf, add bicarb. check ua, urine lytes GI work up increase hydralazine dose
--- NOTE | 2017-10-12 14:31 | CARD ---
APPROVED REPORT EKG Measurement Heart [id number] <Conclusion> Normal sinus rhythm Normal ECG
--- NOTE | 2017-10-12 20:47 | CP.PCM.CON ---
History of Present Illness - History of Present Illness History of Present Illness: CC: Pre Op cardiac risk assessment Initialization Date: 10/11/17 14:52 History Of Present Illness 81 year old female presents to the ED after being referred by her PMD for admission. Per PMD, patient has history of chronic renal insufficiency but is currently not on dialysis. She has been experiencing worsening vomiting and weight loss since May 2017. Patient is complaining of generalized malaise. She denies fever, chills, pain, or changes in appetite. Patient scheduled for EGD. cardiology risk assessment requested Patient denies cardiac hx including chest pain and dyspnea Review Of Systems Constitutional: Positive for: Malaise, Weight loss. Negative for: Other ( changes in appetite ) Gastrointestinal: Positive for: Vomiting. Negative for: Abdominal Pain Physical Exam - Physical Exam Appears: Non-toxic, No Acute Distress Skin: Normal Color, Warm, Dry Head: Atraumatic, Normacephalic Eye(s): bilateral: Normal Inspection Oral Mucosa: Moist Neck: Supple Chest: Symmetrical, No Deformity, No Tenderness Cardiovascular: Rhythm Regular, No Murmur Respiratory: Normal Breath Sounds, No Rales, No Rhonchi, No Wheezing Gastrointestinal/Abdominal: Soft, No Tenderness, No Guarding, No Rebound Extremity: Normal ROM, Capillary Refill (less than 2 seconds ) Neurological/Psych: Oriented x3, Normal Speech, Normal Cognition Past Patient History - Infectious Disease Hx of Infectious Diseases: None - Past Medical History & Family History Past Medical History?: Yes - Past Social History Smoking Status: Never Smoked - CARDIAC Hx Hypertension: Yes - PULMONARY Hx Asthma: Yes - RENAL Hx Chronic Kidney Disease: Yes - ENDOCRINE/METABOLIC Hx Diabetes Mellitus Type 2: Yes - HEMATOLOGICAL/ONCOLOGICAL Hx Blood Disorders: No - INTEGUMENTARY Hx Dermatological Problems: No - MUSCULOSKELETAL/RHEUMATOLOGICAL Hx Falls: Yes - GASTROINTESTINAL Hx Nausea: Yes Hx Vomiting: Yes - GENITOURINARY/GYNECOLOGICAL Hx Genitourinary Disorders: No - PSYCHIATRIC Hx Substance Use: No - SURGICAL HISTORY Hx Surgeries: Yes Hx Orthopedic Surgery: Yes - ANESTHESIA Hx Anesthesia: Yes Hx Anesthesia Reactions: No Meds Allergies/Adverse Reactions: Allergies Allergy/AdvReac Type Severity Reaction Status Date / Time No Known Allergies Allergy Verified 10/11/17 14:18 - Medications Medications: Current Medications Albuterol/Ipratropium (Duoneb 3 Mg/0.5 Mg (3 Ml) Ud) 3 ml INH RQ6 [facility] Last Admin: 10/12/17 19:35 Dose: Not Given Amlodipine Besylate (Norvasc) 10 mg PO DAILY [facility] Last Admin: 10/12/17 09:44 Dose: 10 mg Carvedilol (Coreg) 6.25 mg PO BID [facility] Last Admin: 10/12/17 17:44 Dose: 6.25 mg Fenofibrate (Tricor) 48 mg PO QPM [facility] Last Admin: 10/12/17 17:45 Dose: 48 mg Glipizide (Glucotrol) 5 mg PO ACB [facility] Last Admin: 10/12/17 08:17 Dose: Not Given Heparin Sodium (Porcine) (Heparin) 5,000 units SC Q12 [facility] Last Admin: 10/12/17 09:47 Dose: Not Given Hydralazine HCl (Apresoline) 50 mg PO QID [facility] Last Admin: 10/12/17 17:44 Dose: 50 mg Sodium Bicarbonate 50 meq/ (Sodium Chloride) 1,050 mls @ 100 mls/hr IV .[id number] [facility] Last Admin: 10/12/17 14:00 Dose: 100 mls/hr Insulin Human Regular (Novolin R) 0 unit SC ACHS [facility] PRN Reason: Protocol Last Admin: 10/12/17 17:44 Dose: 4 unit Levothyroxine Sodium (Synthroid) 50 mcg PO DAILY@0630 [facility] Last Admin: 10/12/17 05:36 Dose: 50 mcg Ondansetron HCl (Zofran Inj) 4 mg IVP Q8 PRN PRN Reason: Nausea/Vomiting Rosuvastatin Calcium (Crestor) 5 mg PO HS [facility] Last Admin: 10/11/17 21:36 Dose: 5 mg Results - Vital Signs Recent Vital Signs: Last Vital Signs Temp 97.6 F 10/12/17 16:42 Pulse 86 10/12/17 16:42 Resp 20 10/12/17 16:42 BP 160/63 H 10/12/17 16:42 Pulse Ox 97 10/12/17 16:42 - Labs Result Diagrams: 10/12/17 06:24 10/12/17 06:24 Labs: Laboratory Results - last 24 hr 10/11/17 10/12/17 10/12/17 21:38 06:24 06:24 WBC 6.4 RBC 3.91 Hgb 10.3 L Hct 30.9 L MCV 79.0 L MCH 26.4 L MCHC 33.3 RDW 16.9 H Plt Count 314 MPV 8.0 Neut % (Auto) 68.7 Lymph % (Auto) 20.2 [place] % (Auto) 7.8 Eos % (Auto) 2.5 Baso % (Auto) 0.8 Neut # (Auto) 4.4 Lymph # (Auto) 1.3 [place] # (Auto) 0.5 Eos # (Auto) 0.2 Baso # (Auto) 0.1 Sodium 143 Potassium 4.7 Chloride 107 Carbon Dioxide 16 L Anion Gap 24 H BUN 30 H Creatinine 2.4 H Est GFR ( Amer) 24 Est GFR (Non-Af Amer) 19 POC Glucose (mg/dL) 136 H Random Glucose 118 H Calcium 9.0 Total Bilirubin 0.7 AST 34 ALT < 6 L Alkaline Phosphatase 42 Total Creatine Kinase 44 CK-MB (Mass) 1.43 Troponin I 0.0140 Total Protein 7.9 Albumin 4.5 Globulin 3.5 Albumin/Globulin Ratio 1.3 Lipase 134 10/12/17 10/12/17 10/12/17 07:04 11:16 15:57 WBC RBC Hgb Hct MCV MCH MCHC RDW Plt Count MPV Neut % (Auto) Lymph % (Auto) [place] % (Auto) Eos % (Auto) Baso % (Auto) Neut # (Auto) Lymph # (Auto) [place] # (Auto) Eos # (Auto) Baso # (Auto) Sodium Potassium Chloride Carbon Dioxide Anion Gap BUN Creatinine Est GFR ( Amer) Est GFR (Non-Af Amer) POC Glucose (mg/dL) 139 H 139 H 257 H Random Glucose Calcium Total Bilirubin AST ALT Alkaline Phosphatase Total Creatine Kinase CK-MB (Mass) Troponin I Total Protein Albumin Globulin Albumin/Globulin Ratio Lipase Assessment & Plan - Assessment and Plan (Free Text) Assessment: Shirley Garcia is a 81F w/ a hx of diabetes, hypertension, hypercholesteremia , severe osteoarthritis, chronic renal insufficiency who presented to her PCP office with complaints of intractable nausea and vomiting for the past 2-3 months. No cardiac symptoms or cardiac history Low risk for cardiac events for EGD
[2017-10-12 20:54] LABS: SQUAMOUS EPITHIAL 3 /hpf (0-5); URINE BACTERIA FEW (<OCC); URINE BILIRUBIN NEGATIVE (NEGATIVE); URINE BLOOD NEGATIVE (NEGATIVE); URINE CLARITY Clear (Clear); URINE COLOR Yellow (YELLOW); URINE GLUCOSE (UA) 2+ mg/dL (Normal); URINE LEUKOCYTE ESTERASE 1+ Leu/uL (Negative); URINE PROTEIN 3+ mg/dL (NEGATIVE); URINE UROBILINOGEN NORMAL mg/dL (0.2-1.0)
--- NOTE | 2017-10-12 22:25 | CP.PCM.PN ---
Subjective - Date & Time of Evaluation Date of Evaluation: 10/12/17 Time of Evaluation: 22:25 - Subjective Subjective: The patient was feeling slightly better. She did not have any vomiting. Able to tolerate the feeding. She underwent upper endoscopy. The blood pressure is still on the high side Patient's son at bedside On examination: Vital signs stable. Chest good air entry bilaterally Regular heart sound Abdomen soft. No pedal edema noted. Carotid Doppler is negative for any stenosis. Renal sonogram was nonspecific except atrophic kidneys. CT scan of the abdomen and pelvis currently pending Assessment and recommendation: 81-year-old female with history diabetes and hypertension uncontrolled diabetes , admitted with recurrent vomiting. Worsening renal failure. Gastroparesis likely. Also in intra-abdominal process cannot be ruled out. Will get a CT scan of the abdomen pelvis. I reviewed to be continued. Echocardiogram pending. Will follow the patient. Objective - Vital Signs/Intake and Output Vital Signs (last 24 hours): Temp Pulse Resp BP Pulse Ox 97.6 F 86 20 160/63 H 97 10/12/17 16:42 10/12/17 16:42 10/12/17 16:42 10/12/17 16:42 10/12/17 16:42 Intake and Output: 10/12/17 10/13/17 18:59 06:59 Intake Total 300 Balance 300 - Medications Medications: Current Medications Albuterol/Ipratropium (Duoneb 3 Mg/0.5 Mg (3 Ml) Ud) 3 ml INH RQ6 [facility] Last Admin: 10/12/17 19:35 Dose: Not Given Amlodipine Besylate (Norvasc) 10 mg PO DAILY [facility] Last Admin: 10/12/17 09:44 Dose: 10 mg Carvedilol (Coreg) 6.25 mg PO BID [facility] Last Admin: 10/12/17 17:44 Dose: 6.25 mg Fenofibrate (Tricor) 48 mg PO QPM [facility] Last Admin: 10/12/17 17:45 Dose: 48 mg Glipizide (Glucotrol) 5 mg PO ACB [facility] Last Admin: 10/12/17 08:17 Dose: Not Given Heparin Sodium (Porcine) (Heparin) 5,000 units SC Q12 [facility] Last Admin: 10/12/17 22:16 Dose: 5,000 units Hydralazine HCl (Apresoline) 50 mg PO QID [facility] Last Admin: 10/12/17 22:15 Dose: 50 mg Sodium Bicarbonate 50 meq/ (Sodium Chloride) 1,050 mls @ 100 mls/hr IV .[id number] [facility] Last Admin: 10/12/17 14:00 Dose: 100 mls/hr Insulin Human Regular (Novolin R) 0 unit SC ACHS [facility] PRN Reason: Protocol Last Admin: 10/12/17 22:16 Dose: Not Given Levothyroxine Sodium (Synthroid) 50 mcg PO DAILY@0630 [facility] Last Admin: 10/12/17 05:36 Dose: 50 mcg Ondansetron HCl (Zofran Inj) 4 mg IVP Q8 PRN PRN Reason: Nausea/Vomiting Rosuvastatin Calcium (Crestor) 5 mg PO HS [facility] Last Admin: 10/12/17 22:16 Dose: 5 mg Tramadol HCl (Ultram) 25 mg PO BID PRN PRN Reason: pain - Labs Labs: 10/12/17 06:24 10/12/17 06:24
[2017-10-12] MEDS: Tramadol 25 mg PO PRN (22:36)
[2017-10-13] MEDS: Albuterol-Ipratrop 3 mg / 0.5 (3 ml) UD INH SCH ×4 (01:46→19:21)
[2017-10-13] MEDS: Levothyroxine 50 MCG TAB PO SCH (05:35)
[2017-10-13] MEDS: (Novolin R) Insulin Human Regular 100 units/ml vial SC SCH ×4 (08:28→21:59)
--- NOTE | 2017-10-13 08:37 | CP.PCM.PN ---
<Kash Judge - Last Filed: 10/13/17 08:41> Subjective - Date & Time of Evaluation Date of Evaluation: 10/13/17 Time of Evaluation: 07:00 - Subjective Subjective: PGY4 GI Follow-up Pt seen and examined bedside denies any abd pain tolerated diet yesterday Denies any abd pain +BM yesterday ROS: 12 point ROS conducted, neg other than above Objective - Vital Signs/Intake and Output Vital Signs (last 24 hours): Temp Pulse Resp BP Pulse Ox 98.2 F 73 20 174/76 H 98 10/13/17 07:54 10/13/17 07:54 10/13/17 07:54 10/13/17 07:54 10/13/17 07:54 Intake and Output: 10/13/17 10/13/17 06:59 18:59 Intake Total 1450 Balance 1450 - Medications Medications: Current Medications Albuterol/Ipratropium (Duoneb 3 Mg/0.5 Mg (3 Ml) Ud) 3 ml INH RQ6 [facility] Last Admin: 10/13/17 07:34 Dose: 3 ml Amlodipine Besylate (Norvasc) 10 mg PO DAILY [facility] Last Admin: 10/12/17 09:44 Dose: 10 mg Carvedilol (Coreg) 6.25 mg PO BID [facility] Last Admin: 10/12/17 17:44 Dose: 6.25 mg Fenofibrate (Tricor) 48 mg PO QPM [facility] Last Admin: 10/12/17 17:45 Dose: 48 mg Glipizide (Glucotrol) 5 mg PO ACB [facility] Last Admin: 10/12/17 08:17 Dose: Not Given Heparin Sodium (Porcine) (Heparin) 5,000 units SC Q12 [facility] Last Admin: 10/12/17 22:16 Dose: 5,000 units Hydralazine HCl (Apresoline) 50 mg PO QID [facility] Last Admin: 10/12/17 22:15 Dose: 50 mg Sodium Bicarbonate 50 meq/ (Sodium Chloride) 1,050 mls @ 100 mls/hr IV .[id number] [facility] Last Admin: 10/13/17 02:45 Dose: 100 mls/hr Insulin Human Regular (Novolin R) 0 unit SC ACHS [facility] PRN Reason: Protocol Last Admin: 10/13/17 08:28 Dose: 2 unit Levothyroxine Sodium (Synthroid) 50 mcg PO DAILY@0630 [facility] Last Admin: 10/13/17 05:35 Dose: 50 mcg Ondansetron HCl (Zofran Inj) 4 mg IVP Q8 PRN PRN Reason: Nausea/Vomiting Rosuvastatin Calcium (Crestor) 5 mg PO HS [facility] Last Admin: 10/12/17 22:16 Dose: 5 mg Tramadol HCl (Ultram) 25 mg PO BID PRN PRN Reason: pain Last Admin: 10/12/17 22:36 Dose: 25 mg - Labs Labs: 10/12/17 06:24 10/12/17 06:24 - Constitutional Appears: Well, No Acute Distress - Head Exam Head Exam: ATRAUMATIC, NORMOCEPHALIC - Eye Exam Eye Exam: Normal appearance - ENT Exam ENT Exam: Mucous Membranes Moist, Normal Exam - Neck Exam Neck Exam: Normal Inspection - Respiratory Exam Respiratory Exam: Clear to Ausculation Bilateral, NORMAL BREATHING PATTERN. absent: Rales, Rhonchi, Wheezes, Respiratory Distress - Cardiovascular Exam Cardiovascular Exam: REGULAR RHYTHM, +S1, +S2 - GI/Abdominal Exam GI & Abdominal Exam: Soft, Normal Bowel Sounds. absent: Distended, Firm, Guarding, Rigid, Tenderness, Organomegaly - Extremities Exam Extremities Exam: absent: Joint Swelling, Pedal Edema - Neurological Exam Neurological Exam: Alert, Awake, Oriented x3 - Psychiatric Exam Psychiatric exam: Normal Affect, Normal Mood - Skin Skin Exam: Dry, Intact, Normal Color, Warm Assessment and Plan - Assessment and Plan (Free Text) Assessment: Shirley Garcia is a 81F w/ a hx of diabetes, hypertension, hypercholesteremia , severe osteoarthritis, chronic renal insufficiency who presented to her PCP office with complaints of intractable nausea and vomiting for the past 2-3 months. S/P EGD POD#1 gastritis; esophageal diverticulum Intractable nausea and vomiting (improved) Gastritis Esophageal diverticulum CKD Plan: -advance diet as tolerated -continue Protonix 40mg PO daily -CT abd pending -advise small frequent meals -rest of care as per primary team -will eventually need colonoscopy, but can be done as an oupt D/W Dr. Graves <Pelon Graves - Last Filed: 10/13/17 09:19> Objective - Vital Signs/Intake and Output Vital Signs (last 24 hours): Temp Pulse Resp BP Pulse Ox 98.2 F 73 20 174/76 H 98 10/13/17 07:54 10/13/17 07:54 10/13/17 07:54 10/13/17 07:54 10/13/17 07:54 Intake and Output: 10/13/17 10/13/17 06:59 18:59 Intake Total 1450 Balance 1450 - Medications Medications: Current Medications Albuterol/Ipratropium (Duoneb 3 Mg/0.5 Mg (3 Ml) Ud) 3 ml INH RQ6 [facility] Last Admin: 10/13/17 07:34 Dose: 3 ml Amlodipine Besylate (Norvasc) 10 mg PO DAILY [facility] Last Admin: 10/12/17 09:44 Dose: 10 mg Carvedilol (Coreg) 6.25 mg PO BID [facility] Last Admin: 10/12/17 17:44 Dose: 6.25 mg Fenofibrate (Tricor) 48 mg PO QPM [facility] Last Admin: 10/12/17 17:45 Dose: 48 mg Glipizide (Glucotrol) 5 mg PO ACB [facility] Last Admin: 10/13/17 08:10 Dose: 5 mg Heparin Sodium (Porcine) (Heparin) 5,000 units SC Q12 [facility] Last Admin: 10/12/17 22:16 Dose: 5,000 units Hydralazine HCl (Apresoline) 50 mg PO QID [facility] Last Admin: 10/12/17 22:15 Dose: 50 mg Sodium Bicarbonate 50 meq/ (Sodium Chloride) 1,050 mls @ 100 mls/hr IV .[id number] [facility] Last Admin: 10/13/17 02:45 Dose: 100 mls/hr Insulin Human Regular (Novolin R) 0 unit SC ACHS [facility] PRN Reason: Protocol Last Admin: 10/13/17 08:28 Dose: 2 unit Levothyroxine Sodium (Synthroid) 50 mcg PO DAILY@0630 [facility] Last Admin: 10/13/17 05:35 Dose: 50 mcg Ondansetron HCl (Zofran Inj) 4 mg IVP Q8 PRN PRN Reason: Nausea/Vomiting Rosuvastatin Calcium (Crestor) 5 mg PO HS [facility] Last Admin: 10/12/17 22:16 Dose: 5 mg Tramadol HCl (Ultram) 25 mg PO BID PRN PRN Reason: pain Last Admin: 10/12/17 22:36 Dose: 25 mg - Labs Labs: 10/12/17 06:24 10/12/17 06:24 Attending/Attestation - Attestation I have personally seen and examined this patient.: Yes I have fully participated in the care of the patient.: Yes I have reviewed all pertinent clinical information, including history, physical exam and plan: Yes Notes (Text): 10/13/17 09:19 81 year old femlae with intractable n/v. Unremarkable egd. Await CT.
--- NOTE | 2017-10-13 13:07 | CP.PCM.PN ---
Subjective - Date & Time of Evaluation Date of Evaluation: 10/13/17 Time of Evaluation: 13:06 - Subjective Subjective: seen and examined egd- gastritis denies any n/v/d/sob/cp/fevers/chills/headache/rash/dysuria/hematuria no labs today Objective - Vital Signs/Intake and Output Vital Signs (last 24 hours): Temp Pulse Resp BP Pulse Ox 98.2 F 73 20 174/76 H 98 10/13/17 07:54 10/13/17 07:54 10/13/17 07:54 10/13/17 07:54 10/13/17 07:54 Intake and Output: 10/13/17 10/13/17 06:59 18:59 Intake Total 1450 Balance 1450 - Medications Medications: Current Medications Albuterol/Ipratropium (Duoneb 3 Mg/0.5 Mg (3 Ml) Ud) 3 ml INH RQ6 [facility] Last Admin: 10/13/17 07:34 Dose: 3 ml Amlodipine Besylate (Norvasc) 10 mg PO DAILY [facility] Last Admin: 10/13/17 10:10 Dose: 10 mg Carvedilol (Coreg) 6.25 mg PO BID [facility] Last Admin: 10/13/17 10:00 Dose: 6.25 mg Fenofibrate (Tricor) 48 mg PO QPM [facility] Last Admin: 10/12/17 17:45 Dose: 48 mg Glipizide (Glucotrol) 5 mg PO ACB [facility] Last Admin: 10/13/17 08:10 Dose: 5 mg Heparin Sodium (Porcine) (Heparin) 5,000 units SC Q12 [facility] Last Admin: 10/13/17 10:10 Dose: 5,000 units Hydralazine HCl (Apresoline) 50 mg PO QID [facility] Last Admin: 10/13/17 10:00 Dose: 50 mg Sodium Bicarbonate 50 meq/ (Sodium Chloride) 1,050 mls @ 100 mls/hr IV .[id number] [facility] Last Admin: 10/13/17 02:45 Dose: 100 mls/hr Insulin Human Regular (Novolin R) 0 unit SC ACHS [facility] PRN Reason: Protocol Last Admin: 10/13/17 08:28 Dose: 2 unit Levothyroxine Sodium (Synthroid) 50 mcg PO DAILY@0630 [facility] Last Admin: 10/13/17 05:35 Dose: 50 mcg Ondansetron HCl (Zofran Inj) 4 mg IVP Q8 PRN PRN Reason: Nausea/Vomiting Rosuvastatin Calcium (Crestor) 5 mg PO HS [facility] Last Admin: 10/12/17 22:16 Dose: 5 mg Tramadol HCl (Ultram) 25 mg PO BID PRN PRN Reason: pain Last Admin: 10/12/17 22:36 Dose: 25 mg - Labs Labs: 10/12/17 06:24 10/12/17 06:24 - Constitutional Appears: Non-toxic, No Acute Distress, Chronically Ill - Head Exam Head Exam: NORMAL INSPECTION, NORMOCEPHALIC - Eye Exam Eye Exam: Normal appearance, PERRL Pupil Exam: PERRL - ENT Exam ENT Exam: Mucous Membranes Moist, Normal Exam - Neck Exam Neck Exam: Full ROM, Normal Inspection - Respiratory Exam Respiratory Exam: Clear to Ausculation Bilateral, NORMAL BREATHING PATTERN - Cardiovascular Exam Cardiovascular Exam: REGULAR RHYTHM, RRR - GI/Abdominal Exam GI & Abdominal Exam: Distended, Soft, Normal Bowel Sounds - Extremities Exam Extremities Exam: Full ROM, Normal Inspection - Back Exam Back Exam: NORMAL INSPECTION - Neurological Exam Neurological Exam: Alert, Awake, Oriented x3 - Psychiatric Exam Psychiatric exam: Normal Affect, Normal Mood - Skin Skin Exam: Dry, Intact Assessment and Plan (1) Hypertension Status: Acute (2) Vomiting Status: Acute (3) Dehydration Status: Acute (4) Diabetes mellitus Status: Acute (5) Renal insufficiency Status: Acute - Assessment and Plan (Free Text) Assessment: stat labs ordered urine cultures, r/o uti 3+ proteinuria, quantify. acei/arb once renal function stabilizes maintain iv fluids for now daily chems
[2017-10-13 13:18] LABS: BASO % 0.6 % (0.0-2.0); EOS # 0.1 K/uL (0.0-0.7); EOS % 1.5 % (0.0-4.0); HEMOGLOBIN 10.4 g/dL (11.0-16.0); LYMPH # 1.4 K/uL (1.0-4.3); LYMPH % 19.3 % (20.0-40.0); MEAN CELL VOLUME 78.4 fL (81.0-99.0); MEAN CORPUSCULAR HEMOGLOBIN 26.1 pg (27.0-31.0); MEAN CORPUSCULAR HGB CONC 33.3 g/dL (33.0-37.0); MONO # 0.6 K/uL (0.0-0.8); MONO % 7.8 % (0.0-10.0); NEUT # 5.2 K/uL (1.8-7.0); NEUT % 70.8 % (50.0-75.0); RBC 3.99 Mil/uL (3.80-5.20); RED CELL DISTRIBUTION WIDTH 16.7 % (11.5-14.5); WHITE BLOOD COUNT 7.4 K/uL (4.8-10.8)
[2017-10-13 13:42] LABS: ALB/GLOB RATIO 1.1 (1.0-2.1); ALBUMIN 3.9 g/dL (3.5-5.0); ALT/SGPT < 6 U/L (9-52); AST/SGOT 24 U/L (14-36); BLOOD UREA NITROGEN 28 mg/dL (7-17); GFR AFRICAN-AMERICAN 26; GFR NON-AFRICAN AMERICAN 21
[2017-10-13] MEDS ORDERED: Iohexol 240 (50 ml) PO ONE (16:45)
--- NOTE | 2017-10-13 22:16 | CP.PCM.PN ---
Subjective - Date & Time of Evaluation Date of Evaluation: 10/13/17 Time of Evaluation: 22:15 - Subjective Subjective: Patient is having less abdominal pain, less nausea, tolerating the feeding Not in any distress. On examination: Vital signs are stable. Chest good air entry bilaterally regular heart sound nontender abdomen no pedal edema [employer] alert awake oriented 3 no functional illogical deficit CAT scan of the abdomen currently pending Echo pending. Seen by steamboat pilot. Assessment and recommendation: 81-year-old female with a history of renal insufficiency, hypertension, diabetes , hypercholesterolemia, admitted to the hospital with persistent nausea and vomiting, likely secondary to gastropathy. Underlying uremia cannot be ruled out, dehydration. Will continue to monitor. Follow-up CAT scan, follow up with echocardiogram. Physical therapy. Patient also had a fall facial injury. Is stable Objective - Vital Signs/Intake and Output Vital Signs (last 24 hours): Temp Pulse Resp BP Pulse Ox 98.1 F 79 20 148/74 98 10/13/17 15:30 10/13/17 15:30 10/13/17 15:30 10/13/17 15:30 10/13/17 15:30 Intake and Output: 10/13/17 10/14/17 18:59 06:59 Intake Total 1000 Balance 1000 - Medications Medications: Current Medications Albuterol/Ipratropium (Duoneb 3 Mg/0.5 Mg (3 Ml) Ud) 3 ml INH RQ6 [facility] Last Admin: 10/13/17 19:21 Dose: 3 ml Amlodipine Besylate (Norvasc) 10 mg PO DAILY [facility] Last Admin: 10/13/17 10:10 Dose: 10 mg Carvedilol (Coreg) 6.25 mg PO BID [facility] Last Admin: 10/13/17 17:29 Dose: 6.25 mg Fenofibrate (Tricor) 48 mg PO QPM [facility] Last Admin: 10/13/17 17:29 Dose: 48 mg Glipizide (Glucotrol) 5 mg PO ACB [facility] Last Admin: 10/13/17 08:10 Dose: 5 mg Heparin Sodium (Porcine) (Heparin) 5,000 units SC Q12 [facility] Last Admin: 10/13/17 21:22 Dose: 5,000 units Hydralazine HCl (Apresoline) 50 mg PO QID [facility] Last Admin: 06/01/18 21:22 Dose: 50 mg Sodium Bicarbonate 50 meq/ (Sodium Chloride) 1,050 mls @ 100 mls/hr IV .[id number] [facility] Last Admin: 10/13/17 22:00 Dose: 100 mls/hr Insulin Human Regular (Novolin R) 0 unit SC ACHS [facility] PRN Reason: Protocol Last Admin: 10/13/17 21:59 Dose: 2 unit Levothyroxine Sodium (Synthroid) 50 mcg PO DAILY@0630 [facility] Last Admin: 10/13/17 05:35 Dose: 50 mcg Ondansetron HCl (Zofran Inj) 4 mg IVP Q8 PRN PRN Reason: Nausea/Vomiting Rosuvastatin Calcium (Crestor) 5 mg PO HS [facility] Last Admin: 10/13/17 21:23 Dose: 5 mg Tramadol HCl (Ultram) 25 mg PO BID PRN PRN Reason: pain Last Admin: 10/12/17 22:36 Dose: 25 mg - Labs Labs: 10/13/17 13:14 10/13/17 13:14
[2017-10-14] MEDS: Albuterol-Ipratrop 3 mg / 0.5 (3 ml) UD INH SCH ×4 (01:51→19:15)
--- NOTE | 2017-10-14 01:58 | CP.PCM.PN ---
Subjective - Date & Time of Evaluation Date of Evaluation: 10/13/17 Time of Evaluation: 18:20 - Subjective Subjective: History Of Present Illness 81 year old female presents to the ED after being referred by her PMD for admission. Per PMD, patient has history of chronic renal insufficiency but is currently not on dialysis. She has been experiencing worsening vomiting and weight loss since May 2017. Patient is complaining of generalized malaise. She denies fever, chills, pain, or changes in appetite. Patient scheduled for EGD. cardiology risk assessment requested Patient denies cardiac hx including chest pain and dyspnea Review Of Systems Constitutional: Positive for: Malaise, Weight loss. Negative for: Other ( changes in appetite ) Gastrointestinal: Positive for: Vomiting. Negative for: Abdominal Pain Physical Exam - Physical Exam Appears: Non-toxic, No Acute Distress Skin: Normal Color, Warm, Dry Head: Atraumatic, Normacephalic Eye(s): bilateral: Normal Inspection Oral Mucosa: Moist Neck: Supple Chest: Symmetrical, No Deformity, No Tenderness Cardiovascular: Rhythm Regular, No Murmur Respiratory: Normal Breath Sounds, No Rales, No Rhonchi, No Wheezing Gastrointestinal/Abdominal: Soft, No Tenderness, No Guarding, No Rebound Extremity: Normal ROM, Capillary Refill (less than 2 seconds ) Neurological/Psych: Oriented x3, Normal Speech, Normal Cognition Objective - Vital Signs/Intake and Output Vital Signs (last 24 hours): Temp Pulse Resp BP Pulse Ox 98.3 F 71 20 154/64 H 96 10/13/17 23:55 10/13/17 23:55 10/13/17 23:55 10/13/17 23:55 10/13/17 23:55 Intake and Output: 10/13/17 10/14/17 18:59 06:59 Intake Total 1000 1050 Balance 1000 1050 - Medications Medications: Current Medications Albuterol/Ipratropium (Duoneb 3 Mg/0.5 Mg (3 Ml) Ud) 3 ml INH RQ6 [facility] Last Admin: 10/14/17 01:51 Dose: Not Given Amlodipine Besylate (Norvasc) 10 mg PO DAILY [facility] Last Admin: 10/13/17 10:10 Dose: 10 mg Carvedilol (Coreg) 6.25 mg PO BID [facility] Last Admin: 10/13/17 17:29 Dose: 6.25 mg Fenofibrate (Tricor) 48 mg PO QPM [facility] Last Admin: 10/13/17 17:29 Dose: 48 mg Glipizide (Glucotrol) 5 mg PO ACB [facility] Last Admin: 10/13/17 08:10 Dose: 5 mg Heparin Sodium (Porcine) (Heparin) 5,000 units SC Q12 [facility] Last Admin: 10/13/17 21:22 Dose: 5,000 units Hydralazine HCl (Apresoline) 50 mg PO QID [facility] Last Admin: 10/13/17 21:22 Dose: 50 mg Sodium Bicarbonate 50 meq/ (Sodium Chloride) 1,050 mls @ 100 mls/hr IV .[id number] [facility] Last Admin: 10/13/17 22:00 Dose: 100 mls/hr Insulin Human Regular (Novolin R) 0 unit SC ACHS [facility] PRN Reason: Protocol Last Admin: 10/13/17 21:59 Dose: 2 unit Levothyroxine Sodium (Synthroid) 50 mcg PO DAILY@0630 [facility] Last Admin: 10/13/17 05:35 Dose: 50 mcg Ondansetron HCl (Zofran Inj) 4 mg IVP Q8 PRN PRN Reason: Nausea/Vomiting Rosuvastatin Calcium (Crestor) 5 mg PO HS [facility] Last Admin: 10/13/17 21:23 Dose: 5 mg Tramadol HCl (Ultram) 25 mg PO BID PRN PRN Reason: pain Last Admin: 10/12/17 22:36 Dose: 25 mg - Labs Labs: 10/13/17 13:14 10/13/17 13:14 Assessment and Plan - Assessment and Plan (Free Text) Assessment: (1) Hypertension Status: Acute (2) Vomiting Status: Acute (3) Dehydration Status: Acute (4) Diabetes mellitus Status: Acute (5) Renal insufficiency Status: Acute
[2017-10-14] MEDS: Levothyroxine 50 MCG TAB PO SCH (05:39)
[2017-10-14 06:46] LABS: BASO % 0.4 % (0.0-2.0); EOS # 0.1 K/uL (0.0-0.7); EOS % 1.9 % (0.0-4.0); HEMOGLOBIN 9.8 g/dL (11.0-16.0); LYMPH # 1.3 K/uL (1.0-4.3); LYMPH % 21.7 % (20.0-40.0); MEAN CORPUSCULAR HEMOGLOBIN 26.1 pg (27.0-31.0); MEAN CORPUSCULAR HGB CONC 33.5 g/dL (33.0-37.0); MEAN PLATELET VOLUME 7.9 fL (7.2-11.7); MONO # 0.5 K/uL (0.0-0.8); MONO % 8.2 % (0.0-10.0); NEUT # 4.2 K/uL (1.8-7.0); NEUT % 67.8 % (50.0-75.0); RBC 3.77 Mil/uL (3.80-5.20); WHITE BLOOD COUNT 6.1 K/uL (4.8-10.8)
[2017-10-14 07:02] LABS: ALB/GLOB RATIO 1.1 (1.0-2.1); ALBUMIN 3.5 g/dL (3.5-5.0); AST/SGOT 23 U/L (14-36); BLOOD UREA NITROGEN 27 mg/dL (7-17); CALCIUM 8.8 mg/dl (8.6-10.4); GFR AFRICAN-AMERICAN 27; GFR NON-AFRICAN AMERICAN 23
[2017-10-14 07:04] LABS: ALT/SGPT < 6 U/L (9-52)
[2017-10-14] MEDS: (Novolin R) Insulin Human Regular 100 units/ml vial SC SCH ×4 (08:14→22:16)
--- NOTE | 2017-10-14 10:05 | CT ---
PROCEDURE: CT Abdomen and Pelvis without intravenous contrast HISTORY: abdominal pain COMPARISON: None. TECHNIQUE: Multiple contiguous axial images were performed through the abdomen and pelvis without the use of intravenous contrast. Subsequently, sagittal and coronal reformatted images were obtained. Radiation dose: Total exam DLP = 252 mGy-cm. This CT exam was performed using one or more of the following dose reduction techniques: Automated exposure control, adjustment of the mA and/or kV according to patient size, and/or use of iterative reconstruction technique. FINDINGS: LOWER THORAX: Coronary artery calcifications. Small hiatal hernia. Mild lingular atelectasis. LIVER: Unremarkable. No gross lesion or ductal dilatation. GALLBLADDER AND BILE DUCTS: Unremarkable. PANCREAS: Unremarkable. No gross lesion or ductal dilatation. SPLEEN: Unremarkable. ADRENALS: Nodular thickening of the adrenal glands. KIDNEYS AND URETERS: Punctate 3 millimeter nonobstructing calculus in the upper pole of the right kidney. Additional punctate 1 millimeter nonobstructive calculus in the midpole of the right kidney. Mild fullness of the right renal collecting system. No gross hydronephrosis VASCULATURE: Atherosclerotic calcifications present in the abdominal aorta. BOWEL: Diverticulosis most pronounced in the sigmoid colon. Fecal retention in the colon. APPENDIX: Unremarkable. Normal appendix. PERITONEUM: Unremarkable. No free fluid. No free air. LYMPH NODES: Unremarkable. No enlarged lymph nodes. BLADDER: Unremarkable. REPRODUCTIVE: Unremarkable. BONES: Degenerative changes in the lower lumbar spine. OTHER FINDINGS: Multiple calcified phleboliths in the pelvis. IMPRESSION: No acute obstructive or inflammatory process in the abdomen or pelvis. Small hiatal hernia. Punctate 3 millimeter nonobstructing calculus in the upper pole of the right kidney. Additional punctate 1 millimeter nonobstructive calculus in the midpole of the right kidney. Mild fullness of the right renal collecting system. No gross hydronephrosis. Nodular thickening of the adrenal glands. These findings were preliminarily reported at 8:24 p.m. on 10/13/[address] Hu Katz from [facility].
--- NOTE | 2017-10-14 10:50 | CP.PCM.PN ---
Subjective - Date & Time of Evaluation Date of Evaluation: 10/14/17 Time of Evaluation: 10:45 - Subjective Subjective: comfortable in bed iv's in [place] ct abd shows small stones rt kidney and fullness rt collecting system patient has no hx of kidney stones no FH kidney stones never been told of renal dysfuntion in past No chills fever no chest pain cough no abd pain,n,v,d no dysyueia or gross hematuria Objective - Vital Signs/Intake and Output Vital Signs (last 24 hours): Temp Pulse Resp BP Pulse Ox 98.0 F 78 20 174/73 H 98 10/14/17 08:00 10/14/17 08:00 10/14/17 08:00 10/14/17 08:00 10/14/17 08:00 Intake and Output: 10/14/17 10/14/17 06:59 18:59 Intake Total 1050 Balance 1050 - Medications Medications: Current Medications Albuterol/Ipratropium (Duoneb 3 Mg/0.5 Mg (3 Ml) Ud) 3 ml INH RQ6 [facility] Last Admin: 10/14/17 07:08 Dose: 3 ml Amlodipine Besylate (Norvasc) 10 mg PO DAILY [facility] Last Admin: 10/13/17 10:10 Dose: 10 mg Carvedilol (Coreg) 6.25 mg PO BID [facility] Last Admin: 10/13/17 17:29 Dose: 6.25 mg Fenofibrate (Tricor) 48 mg PO QPM [facility] Last Admin: 10/13/17 17:29 Dose: 48 mg Glipizide (Glucotrol) 5 mg PO ACB [facility] Last Admin: 10/14/17 08:23 Dose: 5 mg Heparin Sodium (Porcine) (Heparin) 5,000 units SC Q12 [facility] Last Admin: 10/13/17 21:22 Dose: 5,000 units Hydralazine HCl (Apresoline) 50 mg PO QID [facility] Last Admin: 10/13/17 21:22 Dose: 50 mg Sodium Bicarbonate 50 meq/ (Sodium Chloride) 1,050 mls @ 100 mls/hr IV .[id number] [facility] Last Admin: 10/14/17 08:00 Dose: Not Given Insulin Human Regular (Novolin R) 0 unit SC ACHS [facility] PRN Reason: Protocol Last Admin: 10/14/17 08:14 Dose: 2 unit Levothyroxine Sodium (Synthroid) 50 mcg PO DAILY@0630 [facility] Last Admin: 10/14/17 05:39 Dose: 50 mcg Ondansetron HCl (Zofran Inj) 4 mg IVP Q8 PRN PRN Reason: Nausea/Vomiting Rosuvastatin Calcium (Crestor) 5 mg PO HS [facility] Last Admin: 10/13/17 21:23 Dose: 5 mg Tramadol HCl (Ultram) 25 mg PO BID PRN PRN Reason: pain Last Admin: 10/12/17 22:36 Dose: 25 mg - Labs Labs: 10/14/17 06:39 10/14/17 06:39 - Constitutional Appears: No Acute Distress - Eye Exam Eye Exam: Conjunctival injection - Neck Exam Additional comments: no jvd at 30 degrees - Respiratory Exam Respiratory Exam: Clear to Ausculation Bilateral - Cardiovascular Exam Cardiovascular Exam: REGULAR RHYTHM - GI/Abdominal Exam GI & Abdominal Exam: Soft. absent: Distended, Tenderness - Extremities Exam Extremities Exam: absent: Calf Tenderness - Back Exam Back Exam: absent: CVA tenderness (L), CVA tenderness (R) Additional comments: nopre sacral edema - Psychiatric Exam Psychiatric exam: Normal Mood - Skin Skin Exam: Dry Assessment and Plan (1) Dehydration Status: Acute (2) Hypertension Status: Acute (3) Laceration of lip Status: Acute (4) Renal insufficiency Status: Acute - Assessment and Plan (Free Text) Plan: NEEDS UROLO follow chems closelyGY CONSULT continue iv's till renal function stabilizes
--- NOTE | 2017-10-14 13:57 | CP.PCM.PN ---
<Kash Judge - Last Filed: 10/14/17 14:00> Subjective - Date & Time of Evaluation Date of Evaluation: 10/14/17 Time of Evaluation: 10:00 - Subjective Subjective: PGY4 GI Followup Pt seen and examined bedside denies any abd pain tolerating diet denies any nausea and vomiting +BM ROS: 12 point ROS conducted, neg other than above Objective - Vital Signs/Intake and Output Vital Signs (last 24 hours): Temp Pulse Resp BP Pulse Ox 98.0 F 78 20 174/73 H 98 10/14/17 08:00 10/14/17 08:00 10/14/17 08:00 10/14/17 08:00 10/14/17 08:00 Intake and Output: 10/14/17 10/14/17 06:59 18:59 Intake Total 1050 Balance 1050 - Medications Medications: Current Medications Albuterol/Ipratropium (Duoneb 3 Mg/0.5 Mg (3 Ml) Ud) 3 ml INH RQ6 [facility] Last Admin: 10/14/17 13:06 Dose: 3 ml Amlodipine Besylate (Norvasc) 10 mg PO DAILY [facility] Last Admin: 10/14/17 10:57 Dose: 10 mg Carvedilol (Coreg) 6.25 mg PO BID [facility] Last Admin: 10/14/17 10:57 Dose: 6.25 mg Fenofibrate (Tricor) 48 mg PO QPM [facility] Last Admin: 10/13/17 17:29 Dose: 48 mg Glipizide (Glucotrol) 5 mg PO ACB [facility] Last Admin: 10/14/17 08:23 Dose: 5 mg Heparin Sodium (Porcine) (Heparin) 5,000 units SC Q12 [facility] Last Admin: 10/14/17 10:56 Dose: 5,000 units Hydralazine HCl (Apresoline) 50 mg PO QID [facility] Last Admin: 10/14/17 10:57 Dose: 50 mg Sodium Bicarbonate 50 meq/ (Sodium Chloride) 1,050 mls @ 100 mls/hr IV .[id number] [facility] Last Admin: 10/14/17 08:00 Dose: Not Given Insulin Human Regular (Novolin R) 0 unit SC ACHS [facility] PRN Reason: Protocol Last Admin: 10/14/17 12:48 Dose: 3 unit Levothyroxine Sodium (Synthroid) 50 mcg PO DAILY@0630 [facility] Last Admin: 10/14/17 05:39 Dose: 50 mcg Ondansetron HCl (Zofran Inj) 4 mg IVP Q8 PRN PRN Reason: Nausea/Vomiting Rosuvastatin Calcium (Crestor) 5 mg PO HS [facility] Last Admin: 10/13/17 21:23 Dose: 5 mg Tramadol HCl (Ultram) 25 mg PO BID PRN PRN Reason: pain Last Admin: 10/12/17 22:36 Dose: 25 mg - Labs Labs: 10/14/17 06:39 10/14/17 06:39 - Constitutional Appears: Well, No Acute Distress - Head Exam Head Exam: ATRAUMATIC, NORMOCEPHALIC - Eye Exam Eye Exam: Normal appearance - ENT Exam ENT Exam: Mucous Membranes Moist, Normal Exam - Neck Exam Neck Exam: Normal Inspection - Respiratory Exam Respiratory Exam: Clear to Ausculation Bilateral, NORMAL BREATHING PATTERN. absent: Rales, Rhonchi, Wheezes, Respiratory Distress - Cardiovascular Exam Cardiovascular Exam: REGULAR RHYTHM, +S1, +S2 - GI/Abdominal Exam GI & Abdominal Exam: Soft, Normal Bowel Sounds. absent: Firm, Guarding, Rigid, Tenderness, Organomegaly - Extremities Exam Extremities Exam: absent: Joint Swelling, Pedal Edema - Neurological Exam Neurological Exam: Alert, Awake, Oriented x3 - Psychiatric Exam Psychiatric exam: Normal Affect, Normal Mood - Skin Skin Exam: Dry, Intact, Normal Color, Warm Assessment and Plan - Assessment and Plan (Free Text) Assessment: Shirley Garcia is a 81F w/ a hx of diabetes, hypertension, hypercholesteremia , severe osteoarthritis, chronic renal insufficiency who presented to her PCP office with complaints of intractable nausea and vomiting for the past 2-3 months. S/P EGD POD#1 gastritis; esophageal diverticulum Intractable nausea and vomiting (improved) Gastritis Esophageal diverticulum CKD Plan: -advance diet as tolerated -continue Protonix 40mg PO daily -advise small frequent meals -rest of care as per primary team -CT abd/Pelv, revealed no sig abnormality -will eventually need colonoscopy, but can be done as an oupt -will sign off D/W Dr. Garsia <Hallie Garsia - Last Filed: 10/14/17 19:50> Objective - Vital Signs/Intake and Output Vital Signs (last 24 hours): Temp Pulse Resp BP Pulse Ox 98 F 78 20 154/72 H 99 10/14/17 16:00 10/14/17 16:00 10/14/17 16:00 10/14/17 16:00 10/14/17 16:00 Intake and Output: 10/14/17 10/15/17 18:59 06:59 Intake Total 1000 Balance 1000 - Medications Medications: Current Medications Albuterol/Ipratropium (Duoneb 3 Mg/0.5 Mg (3 Ml) Ud) 3 ml INH RQ6 [facility] Last Admin: 10/14/17 19:15 Dose: 3 ml Amlodipine Besylate (Norvasc) 10 mg PO DAILY [facility] Last Admin: 10/14/17 10:57 Dose: 10 mg Carvedilol (Coreg) 6.25 mg PO BID [facility] Last Admin: 10/14/17 18:43 Dose: 6.25 mg Fenofibrate (Tricor) 48 mg PO QPM [facility] Last Admin: 10/14/17 18:43 Dose: 48 mg Glipizide (Glucotrol) 10 mg PO ACB [facility] Heparin Sodium (Porcine) (Heparin) 5,000 units SC Q12 [facility] Last Admin: 10/14/17 10:56 Dose: 5,000 units Hydralazine HCl (Apresoline) 50 mg PO QID [facility] Last Admin: 10/14/17 18:43 Dose: 50 mg Insulin Human Regular (Novolin R) 0 unit SC ACHS [facility] PRN Reason: Protocol Last Admin: 10/14/17 17:40 Dose: 2 unit Levothyroxine Sodium (Synthroid) 50 mcg PO DAILY@0630 [facility] Last Admin: 10/14/17 05:39 Dose: 50 mcg Metformin HCl (Glucophage) 500 mg PO BIDCC [facility] Rosuvastatin Calcium (Crestor) 5 mg PO HS [facility] Last Admin: 10/13/17 21:23 Dose: 5 mg Sitagliptin Phosphate (Januvia) 25 mg PO DAILY [facility] Tramadol HCl (Ultram) 25 mg PO BID PRN PRN Reason: pain Last Admin: 10/12/17 22:36 Dose: 25 mg - Labs Labs: 10/14/17 06:39 10/14/17 13:52 Attending/Attestation - Attestation I have personally seen and examined this patient.: Yes I have fully participated in the care of the patient.: Yes I have reviewed all pertinent clinical information, including history, physical exam and plan: Yes Notes (Text): 10/14/17 19:47 81 year old female with intractable nausea and vomiting. Unremarkable EGD. CT abdomen unremarkable. Today she had no complains. Will sign off.
[2017-10-14 14:11] LABS: CALCIUM 8.5 mg/dl (8.6-10.4)
--- NOTE | 2017-10-14 16:09 | CARD ---
APPROVED REPORT EXAM: Two-dimensional and M-mode echocardiogram with Doppler and color Doppler. Other Information Quality : GoodRhythm : INDICATION Congestive Heart Failure RISK FACTORS Diabetes 2D DIMENSIONS IVSd1.3 (0.7-1.1cm)LVDd3.0 (3.9-5.9cm) PWd1.5 (0.7-1.1cm)LVDs1.8 (2.5-4.0cm) FS (%) 40.3 %LVEF (%)72.6 (>50%) M-Mode DIMENSIONS Left Atrium (MM)2.86 (2.5-4.0cm)Aortic Root3.49 (2.2-3.7cm) Aortic Cusp Exc.1.53 (1.5-2.0cm) Mitral Valve MV E Owcejtoe02.2cm/sMV A Kpntlwlb184.3cm/sE/A ratio0.4 TDI E/Lateral E'0.0E/Medial E'0.0 LEFT VENTRICLE The left ventricle is normal size. There is moderate concentric left ventricular hypertrophy. The left ventricular function is normal. The left ventricular ejection fraction is within the normal range. There is normal LV segmental wall motion. Transmitral Doppler flow pattern is abnormal. RIGHT VENTRICLE The right ventricle is normal size. ATRIA The left atrium size is normal. The right atrium size is normal. AORTIC VALVE The aortic valve is calcified but opens well. MITRAL VALVE The mitral valve is normal in structure. TRICUSPID VALVE The tricuspid valve is normal in structure. <Conclusion> Normal LV systolic function. Moderate LVH with diastolic dysfunction. Normal chamber size.
--- NOTE | 2017-10-14 18:51 | CP.PCM.PN ---
Subjective - Date & Time of Evaluation Date of Evaluation: 10/14/17 Time of Evaluation: 18:50 - Subjective Subjective: Patient is today feeling better. She is able to eat and tolerated. No vomiting noted. No chest pain or shortness of breath. On examination: Vital signs stable. Blood sugar elevated. Medications suggested Chest good air entry bilaterally regular heart sound nontender abdomen no pedal edema OCCUP[employer] HEALTH NURSE alert awake oriented 3 no functional neurological deficit CAT scan of the abdomen showing evidence of no acute pathology. Assessment and recommendation: 81-year-old female admitted with history of diabetes hypertension and hypercholesteremia Renal insufficiency Uncontrolled hypertension Also having severe vomiting, nausea. Nonspecific Most likely related to diabetic gastropathy. Improving. Acute renal insufficiency on chronic renal failure Clinically patient is stable. She will be discharged home possibly tomorrow. We will monitor the labs tomorrow Objective - Vital Signs/Intake and Output Vital Signs (last 24 hours): Temp Pulse Resp BP Pulse Ox 98.0 F 78 20 174/73 H 98 10/14/17 08:00 10/14/17 08:00 10/14/17 08:00 10/14/17 08:00 10/14/17 08:00 Intake and Output: 10/14/17 10/14/17 06:59 18:59 Intake Total 1050 1000 Balance 1050 1000 - Medications Medications: Current Medications Albuterol/Ipratropium (Duoneb 3 Mg/0.5 Mg (3 Ml) Ud) 3 ml INH RQ6 [facility] Last Admin: 10/14/17 13:06 Dose: 3 ml Amlodipine Besylate (Norvasc) 10 mg PO DAILY [facility] Last Admin: 10/14/17 10:57 Dose: 10 mg Carvedilol (Coreg) 6.25 mg PO BID [facility] Last Admin: 10/14/17 18:43 Dose: 6.25 mg Fenofibrate (Tricor) 48 mg PO QPM [facility] Last Admin: 10/14/17 18:43 Dose: 48 mg Heparin Sodium (Porcine) (Heparin) 5,000 units SC Q12 [facility] Last Admin: 10/14/17 10:56 Dose: 5,000 units Hydralazine HCl (Apresoline) 50 mg PO QID [facility] Last Admin: 10/14/17 18:43 Dose: 50 mg Insulin Human Regular (Novolin R) 0 unit SC ACHS [facility] PRN Reason: Protocol Last Admin: 10/14/17 17:40 Dose: 2 unit Levothyroxine Sodium (Synthroid) 50 mcg PO DAILY@0630 [facility] Last Admin: 10/14/17 05:39 Dose: 50 mcg Rosuvastatin Calcium (Crestor) 5 mg PO HS [facility] Last Admin: 10/13/17 21:23 Dose: 5 mg Tramadol HCl (Ultram) 25 mg PO BID PRN PRN Reason: pain Last Admin: 10/12/17 22:36 Dose: 25 mg - Labs Labs: 10/14/17 06:39 10/14/17 13:52
[2017-10-14] MEDS: Tramadol 25 mg PO PRN (22:22)
[2017-10-15] MEDS: Albuterol-Ipratrop 3 mg / 0.5 (3 ml) UD INH SCH ×4 (01:53→20:17)
[2017-10-15] MEDS: Levothyroxine 50 MCG TAB PO SCH (06:41)
[2017-10-15 07:09] LABS: CALCIUM 8.4 mg/dl (8.6-10.4)
--- NOTE | 2017-10-15 07:35 | CP.PCM.PN ---
Subjective - Date & Time of Evaluation Date of Evaluation: 10/15/17 Time of Evaluation: 07:35 - Subjective Subjective: Patient is today feeling better. She is able to eat and tolerated. No vomiting noted. No chest pain or shortness of breath. On examination: Vital signs stable. Blood sugar elevated. Medications suggested Chest good air entry bilaterally regular heart sound nontender abdomen no pedal edema [employer] DEVELOPER alert awake oriented 3 no functional neurological deficit CAT scan of the abdomen showing evidence of no acute pathology. Assessment and recommendation: 81-year-old female admitted with history of diabetes hypertension and hypercholesteremia Renal insufficiency Uncontrolled hypertension Also having severe vomiting, nausea. Nonspecific Most likely related to diabetic gastropathy. Improving. Acute renal insufficiency on chronic renal failure Clinically patient is stable. She will be discharged home possibly tomorrow. We will monitor the labs tomorrow Objective - Vital Signs/Intake and Output Vital Signs (last 24 hours): Temp Pulse Resp BP Pulse Ox 98.0 F 87 18 144/72 99 10/15/17 00:00 10/15/17 00:00 10/15/17 00:00 10/15/17 00:00 10/15/17 00:00 Intake and Output: 10/15/17 10/15/17 06:59 18:59 Intake Total 800 Balance 800 - Medications Medications: Current Medications Albuterol/Ipratropium (Duoneb 3 Mg/0.5 Mg (3 Ml) Ud) 3 ml INH RQ6 [facility] Last Admin: 10/15/17 01:53 Dose: Not Given Amlodipine Besylate (Norvasc) 10 mg PO DAILY [facility] Last Admin: 10/14/17 10:57 Dose: 10 mg Carvedilol (Coreg) 6.25 mg PO BID [facility] Last Admin: 10/14/17 18:43 Dose: 6.25 mg Fenofibrate (Tricor) 48 mg PO QPM [facility] Last Admin: 10/14/17 18:43 Dose: 48 mg Glipizide (Glucotrol) 10 mg PO ACB [facility] Heparin Sodium (Porcine) (Heparin) 5,000 units SC Q12 [facility] Last Admin: 10/14/17 22:07 Dose: 5,000 units Hydralazine HCl (Apresoline) 50 mg PO QID [facility] Last Admin: 10/14/17 22:07 Dose: 50 mg Insulin Human Regular (Novolin R) 0 unit SC ACHS [facility] PRN Reason: Protocol Last Admin: 10/14/17 22:16 Dose: Not Given Levothyroxine Sodium (Synthroid) 50 mcg PO DAILY@0630 [facility] Last Admin: 10/15/17 06:41 Dose: 50 mcg Metformin HCl (Glucophage) 500 mg PO BIDCC [facility] Rosuvastatin Calcium (Crestor) 5 mg PO HS [facility] Last Admin: 10/14/17 22:07 Dose: 5 mg Sitagliptin Phosphate (Januvia) 25 mg PO DAILY [facility] Tramadol HCl (Ultram) 25 mg PO BID PRN PRN Reason: pain Last Admin: 10/14/17 22:22 Dose: 25 mg - Labs Labs: 10/14/17 06:39 10/15/17 06:50
[2017-10-15] MEDS: (Novolin R) Insulin Human Regular 100 units/ml vial SC SCH ×4 (08:30→21:15)
--- NOTE | 2017-10-15 08:47 | CP.PCM.PN ---
Subjective - Date & Time of Evaluation Date of Evaluation: 10/14/17 Time of Evaluation: 14:40 - Subjective Subjective: 81 year old female presents to the ED after being referred by her PMD for admission. Per PMD, patient has history of chronic renal insufficiency. Patient denies cardiac hx including chest pain and dyspnea Review Of Systems Constitutional: Positive for: Malaise, Weight loss. Negative for: Other ( changes in appetite ) Gastrointestinal: Positive for: Vomiting. Negative for: Abdominal Pain Physical Exam - Physical Exam Appears: Non-toxic, No Acute Distress Skin: Normal Color, Warm, Dry Head: Atraumatic, Normacephalic Eye(s): bilateral: Normal Inspection Oral Mucosa: Moist Neck: Supple Chest: Symmetrical, No Deformity, No Tenderness Cardiovascular: Rhythm Regular, No Murmur Respiratory: Normal Breath Sounds, No Rales, No Rhonchi, No Wheezing Gastrointestinal/Abdominal: Soft, No Tenderness, No Guarding, No Rebound Extremity: Normal ROM, Capillary Refill (less than 2 seconds ) Neurological/Psych: Oriented x3, Normal Speech, Normal Cognition Objective - Vital Signs/Intake and Output Vital Signs (last 24 hours): Temp Pulse Resp BP Pulse Ox 98.0 F 87 18 144/72 99 10/15/17 00:00 10/15/17 00:00 10/15/17 00:00 10/15/17 00:00 10/15/17 00:00 Intake and Output: 10/15/17 10/15/17 06:59 18:59 Intake Total 800 Balance 800 - Medications Medications: Current Medications Albuterol/Ipratropium (Duoneb 3 Mg/0.5 Mg (3 Ml) Ud) 3 ml INH RQ6 [facility] Last Admin: 10/15/17 07:39 Dose: 3 ml Amlodipine Besylate (Norvasc) 10 mg PO DAILY [facility] Last Admin: 10/14/17 10:57 Dose: 10 mg Carvedilol (Coreg) 6.25 mg PO BID [facility] Last Admin: 10/14/17 18:43 Dose: 6.25 mg Fenofibrate (Tricor) 48 mg PO QPM [facility] Last Admin: 10/14/17 18:43 Dose: 48 mg Glipizide (Glucotrol) 10 mg PO ACB [facility] Last Admin: 10/15/17 08:45 Dose: 10 mg Heparin Sodium (Porcine) (Heparin) 5,000 units SC Q12 [facility] Last Admin: 10/14/17 22:07 Dose: 5,000 units Hydralazine HCl (Apresoline) 50 mg PO QID [facility] Last Admin: 10/14/17 22:07 Dose: 50 mg Insulin Human Regular (Novolin R) 0 unit SC ACHS [facility] PRN Reason: Protocol Last Admin: 10/15/17 08:30 Dose: 3 unit Levothyroxine Sodium (Synthroid) 50 mcg PO DAILY@0630 [facility] Last Admin: 10/15/17 06:41 Dose: 50 mcg Metformin HCl (Glucophage) 500 mg PO BIDCC [facility] Last Admin: 10/15/17 08:45 Dose: 500 mg Rosuvastatin Calcium (Crestor) 5 mg PO HS [facility] Last Admin: 10/14/17 22:07 Dose: 5 mg Sitagliptin Phosphate (Januvia) 25 mg PO DAILY [facility] Tramadol HCl (Ultram) 25 mg PO BID PRN PRN Reason: pain Last Admin: 10/14/17 22:22 Dose: 25 mg - Labs Labs: 10/14/17 06:39 10/15/17 06:50 Assessment and Plan - Assessment and Plan (Free Text) Assessment: (1) Hypertension Status: Acute (2) Vomiting Status: Acute (3) Dehydration Status: Acute (4) Diabetes mellitus Status: Acute (5) Renal insufficiency Status: Acute
[2017-10-15] MEDS: Tramadol 25 mg PO PRN (21:17)
--- NOTE | 2017-10-15 22:29 | CP.PCM.PN ---
Subjective - Date & Time of Evaluation Date of Evaluation: 10/15/17 Time of Evaluation: 10:45 - Subjective Subjective: 81 year old female presents to the ED after being referred by her PMD for admission. Per PMD, patient has history of chronic renal insufficiency. Patient denies cardiac hx including chest pain and dyspnea Review Of Systems Constitutional: Positive for: Malaise, Weight loss. Negative for: Other ( changes in appetite ) Gastrointestinal: Positive for: Vomiting. Negative for: Abdominal Pain Physical Exam - Physical Exam Appears: Non-toxic, No Acute Distress Skin: Normal Color, Warm, Dry Head: Atraumatic, Normacephalic Eye(s): bilateral: Normal Inspection Oral Mucosa: Moist Neck: Supple Chest: Symmetrical, No Deformity, No Tenderness Cardiovascular: Rhythm Regular, No Murmur Respiratory: Normal Breath Sounds, No Rales, No Rhonchi, No Wheezing Gastrointestinal/Abdominal: Soft, No Tenderness, No Guarding, No Rebound Extremity: Normal ROM, Capillary Refill (less than 2 seconds ) Neurological/Psych: Oriented x3, Normal Speech, Normal Cognition Objective - Vital Signs/Intake and Output Vital Signs (last 24 hours): Temp Pulse Resp BP Pulse Ox 98.1 F 92 H 18 150/74 99 10/15/17 20:55 10/15/17 20:55 10/15/17 20:55 10/15/17 20:55 10/15/17 20:55 Intake and Output: 10/15/17 10/16/17 18:59 06:59 Intake Total 480 Balance 480 - Medications Medications: Current Medications Albuterol/Ipratropium (Duoneb 3 Mg/0.5 Mg (3 Ml) Ud) 3 ml INH RQ6 [facility] Last Admin: 10/15/17 20:17 Dose: Not Given Amlodipine Besylate (Norvasc) 10 mg PO DAILY [facility] Last Admin: 10/15/17 10:03 Dose: 10 mg Carvedilol (Coreg) 6.25 mg PO BID [facility] Last Admin: 10/15/17 17:12 Dose: 6.25 mg Fenofibrate (Tricor) 48 mg PO QPM [facility] Last Admin: 10/15/17 17:12 Dose: 48 mg Glipizide (Glucotrol) 10 mg PO ACB [facility] Last Admin: 10/15/17 08:45 Dose: 10 mg Heparin Sodium (Porcine) (Heparin) 5,000 units SC Q12 [facility] Last Admin: 10/15/17 21:14 Dose: 5,000 units Hydralazine HCl (Apresoline) 50 mg PO QID [facility] Last Admin: 10/15/17 21:14 Dose: 50 mg Insulin Human Regular (Novolin R) 0 unit SC ACHS [facility] PRN Reason: Protocol Last Admin: 10/15/17 21:15 Dose: Not Given Levothyroxine Sodium (Synthroid) 50 mcg PO DAILY@0630 [facility] Last Admin: 10/15/17 06:41 Dose: 50 mcg Metformin HCl (Glucophage) 500 mg PO BIDCC [facility] Last Admin: 10/15/17 17:12 Dose: 500 mg Rosuvastatin Calcium (Crestor) 5 mg PO HS [facility] Last Admin: 10/15/17 21:14 Dose: 5 mg Sitagliptin Phosphate (Januvia) 25 mg PO DAILY [facility] Last Admin: 10/15/17 10:03 Dose: 25 mg Tramadol HCl (Ultram) 25 mg PO BID PRN PRN Reason: pain Last Admin: 10/15/17 21:17 Dose: 25 mg - Labs Labs: 10/14/17 06:39 10/15/17 06:50 Assessment and Plan - Assessment and Plan (Free Text) Assessment: (1) Hypertension Status: Acute (2) Vomiting Status: Acute (3) Dehydration Status: Acute (4) Diabetes mellitus Status: Acute (5) Renal insufficiency Status: Acute
[2017-10-16 00:22] VITALS: RESP 20
[2017-10-16] MEDS: Albuterol-Ipratrop 3 mg / 0.5 (3 ml) UD INH SCH ×3 (01:04→13:31)
[2017-10-16] MEDS: Levothyroxine 50 MCG TAB PO SCH (05:33)
[2017-10-16 07:45] VITALS: BP 165/81; PULSE 88; TEMP 98.3
[2017-10-16] MEDS: (Novolin R) Insulin Human Regular 100 units/ml vial SC SCH ×2 (08:25→12:06)
[2017-10-16 11:49] LABS: BASO % 0.4 % (0.0-2.0); HEMOGLOBIN 9.8 g/dL (11.0-16.0); LYMPH # 0.9 K/uL (1.0-4.3); LYMPH % 18.8 % (20.0-40.0); MEAN CELL VOLUME 78.5 fL (81.0-99.0); MEAN CORPUSCULAR HEMOGLOBIN 26.4 pg (27.0-31.0); MEAN CORPUSCULAR HGB CONC 33.6 g/dL (33.0-37.0); MEAN PLATELET VOLUME 8.6 fL (7.2-11.7); MONO # 0.4 K/uL (0.0-0.8); MONO % 9.1 % (0.0-10.0); NEUT # 3.3 K/uL (1.8-7.0); NEUT % 70.7 % (50.0-75.0); NRBC % 0.1 % (0.0-2.0); RBC 3.73 Mil/uL (3.80-5.20); RED CELL DISTRIBUTION WIDTH 17.3 % (11.5-14.5); WHITE BLOOD COUNT 4.7 K/uL (4.8-10.8)
[2017-10-16 11:59] LABS: CALCIUM 8.9 mg/dl (8.6-10.4)
--- NOTE | 2017-10-16 12:20 | CP.PCM.PN ---
Subjective - Date & Time of Evaluation Date of Evaluation: 10/16/17 Time of Evaluation: 12:17 - Subjective Subjective: Feels better Less nausea, no vomiting Is poor historian; pt has h/o CKD- likely stage 4 and proteinuria due to DM BP controlled now No CPs, SOB, f, chills, HAs Objective - Vital Signs/Intake and Output Vital Signs (last 24 hours): Temp Pulse Resp BP Pulse Ox 98.3 F 88 20 165/81 H 99 10/16/17 07:43 10/16/17 07:43 10/16/17 07:43 10/16/17 07:43 10/16/17 07:43 Intake and Output: 10/16/17 10/16/17 06:59 18:59 Intake Total 400 120 Balance 400 120 - Medications Medications: Current Medications Albuterol/Ipratropium (Duoneb 3 Mg/0.5 Mg (3 Ml) Ud) 3 ml INH RQ6 [facility] Last Admin: 10/16/17 07:34 Dose: 3 ml Amlodipine Besylate (Norvasc) 10 mg PO DAILY [facility] Last Admin: 10/16/17 10:03 Dose: 10 mg Carvedilol (Coreg) 6.25 mg PO BID [facility] Last Admin: 10/16/17 10:03 Dose: 6.25 mg Fenofibrate (Tricor) 48 mg PO QPM [facility] Last Admin: 10/15/17 17:12 Dose: 48 mg Glipizide (Glucotrol) 10 mg PO ACB [facility] Last Admin: 10/16/17 08:32 Dose: 10 mg Heparin Sodium (Porcine) (Heparin) 5,000 units SC Q12 [facility] Last Admin: 10/16/17 10:04 Dose: 5,000 units Hydralazine HCl (Apresoline) 50 mg PO QID [facility] Last Admin: 10/16/17 10:03 Dose: 50 mg Insulin Human Regular (Novolin R) 0 unit SC ACHS [facility] PRN Reason: Protocol Last Admin: 10/16/17 12:06 Dose: 2 unit Levothyroxine Sodium (Synthroid) 50 mcg PO DAILY@0630 [facility] Last Admin: 10/16/17 05:33 Dose: 50 mcg Metformin HCl (Glucophage) 500 mg PO BIDCC [facility] Last Admin: 10/16/17 08:33 Dose: 500 mg Rosuvastatin Calcium (Crestor) 5 mg PO HS [facility] Last Admin: 10/15/17 21:14 Dose: 5 mg Sitagliptin Phosphate (Januvia) 25 mg PO DAILY [facility] Last Admin: 10/16/17 10:03 Dose: 25 mg Tramadol HCl (Ultram) 25 mg PO BID PRN PRN Reason: pain Last Admin: 10/15/17 21:17 Dose: 25 mg - Labs Labs: 10/16/17 11:32 10/16/17 11:32 - Constitutional Appears: No Acute Distress, Chronically Ill - Head Exam Head Exam: ATRAUMATIC, NORMAL INSPECTION - Eye Exam Eye Exam: EOMI, Normal appearance - Neck Exam Neck Exam: Normal Inspection. absent: Tenderness - Respiratory Exam Respiratory Exam: Clear to Ausculation Bilateral, NORMAL BREATHING PATTERN - Cardiovascular Exam Cardiovascular Exam: REGULAR RHYTHM, +S1 - GI/Abdominal Exam GI & Abdominal Exam: Soft. absent: Tenderness - Extremities Exam Extremities Exam: Normal Inspection. absent: Tenderness - Neurological Exam Neurological Exam: Alert, CN II-XII Intact - Skin Skin Exam: Dry, Warm Assessment and Plan (1) Chronic kidney disease, stage IV (severe) Status: Acute (2) Type 2 diabetes mellitus with diabetic nephropathy Status: Acute (3) Diabetic gastroparesis Status: Acute (4) Hypertension Status: Acute - Assessment and Plan (Free Text) Plan: Evaluate for nephrotic syndrome Consider WILD I if creatinine stable Monitor BP
[2017-10-16 14:00] VITALS: O2SAT 100
--- NOTE | 2017-10-16 20:21 | CP.PCM.DIS ---
Provider - Provider Date of Admission: 10/11/17 15:10 Attending physician: Soha Camara MD Time Spent in preparation of Discharge (in minutes): 45 Hospital Course - Lab Results Lab Results: Micro Results 10/13/17 19:33 Urine,Clean Catch Urine Culture - Final No Growth (<1,000 CFU/ML) Most Recent Lab Values WBC 4.7 K/uL (4.8-10.8) L 10/16/17 11:32 RBC 3.73 Mil/uL (3.80-5.20) L 10/16/17 11:32 Hgb 9.8 g/dL (11.0-16.0) L 10/16/17 11:32 Hct 29.3 % (34.0-47.0) L 10/16/17 11:32 MCV 78.5 fL (81.0-99.0) L 10/16/17 11:32 MCH 26.4 pg (27.0-31.0) L 10/16/17 11:32 MCHC 33.6 g/dL (33.0-37.0) 10/16/17 11:32 RDW 17.3 % (11.5-14.5) H 10/16/17 11:32 Plt Count 288 K/uL (130-400) 10/16/17 11:32 MPV 8.6 fL (7.2-11.7) 10/16/17 11:32 Neut % (Auto) 70.7 % (50.0-75.0) 10/16/17 11:32 Lymph % (Auto) 18.8 % (20.0-40.0) L 10/16/17 11:32 [place] % (Auto) 9.1 % (0.0-10.0) 10/16/17 11:32 Eos % (Auto) 1.0 % (0.0-4.0) 10/16/17 11:32 Baso % (Auto) 0.4 % (0.0-2.0) 10/16/17 11:32 Neut # (Auto) 3.3 K/uL (1.8-7.0) 10/16/17 11:32 Lymph # (Auto) 0.9 K/uL (1.0-4.3) L 10/16/17 11:32 [place] # (Auto) 0.4 K/uL (0.0-0.8) 10/16/17 11:32 Eos # (Auto) 0.0 K/uL (0.0-0.7) 10/16/17 11:32 Baso # (Auto) 0.0 K/uL (0.0-0.2) 10/16/17 11:32 Sodium 140 mmol/L (132-148) 10/16/17 11:32 Potassium 4.0 mmol/L (3.6-5.2) 10/16/17 11:32 Chloride 103 mmol/L (98-107) 10/16/17 11:32 Carbon Dioxide 26 mmol/L (22-30) 10/16/17 11:32 Anion Gap 14 (10-20) 10/16/17 11:32 BUN 33 mg/dL (7-17) H 10/16/17 11:32 Creatinine 2.4 mg/dL (0.7-1.2) H 10/16/17 11:32 Est GFR ( Amer) 24 10/16/17 11:32 Est GFR (Non-Af Amer) 19 10/16/17 11:32 POC Glucose (mg/dL) 157 mg/dL (65-110) H 10/16/17 11:34 Random Glucose 203 mg/dL (65-105) H 10/16/17 11:32 Calcium 8.9 mg/dl (8.6-10.4) 10/16/17 11:32 Total Bilirubin 0.4 mg/dL (0.2-1.3) 10/14/17 06:39 AST 23 U/L (14-36) 10/14/17 06:39 ALT < 6 U/L (9-52) L 10/14/17 06:39 Alkaline Phosphatase 47 U/L (38-126) 10/14/17 06:39 Total Creatine Kinase 44 U/L (30-135) 10/12/17 06:24 CK-MB (Mass) 1.43 ng/mL (0.0-3.38) 10/12/17 06:24 Troponin I 0.0140 ng/mL (0.00-0.120) 10/12/17 06:24 Total Protein 6.8 g/dL (6.3-8.3) 10/14/17 06:39 Albumin 3.5 g/dL (3.5-5.0) 10/14/17 06:39 Globulin 3.2 gm/dL (2.2-3.9) 10/14/17 06:39 Albumin/Globulin Ratio 1.1 (1.0-2.1) 10/14/17 06:39 Lipase 134 U/L (23-300) 10/12/17 06:24 Urine Color Yellow (YELLOW) 10/12/17 20:44 Urine Clarity Clear (Clear) 10/12/17 20:44 Urine pH 6.0 (5.0-8.0) 10/12/17 20:44 Ur Specific [place] 1.012 (1.003-1.030) 10/12/17 20:44 Urine Protein 3+ mg/dL (NEGATIVE) H 10/12/17 20:44 Urine Glucose (UA) 2+ mg/dL (Normal) H 10/12/17 20:44 Urine Ketones 1+ mg/dL (NEGATIVE) H 10/12/17 20:44 Urine Blood Negative (NEGATIVE) 10/12/17 20:44 Urine Nitrate Negative (NEGATIVE) 10/12/17 20:44 Urine Bilirubin Negative (NEGATIVE) 10/12/17 20:44 Urine Urobilinogen Normal mg/dL (0.2-1.0) 10/12/17 20:44 Ur Leukocyte Esterase 1+ Cef[place]/uL (Negative) H 10/12/17 20:44 Urine WBC (Auto) 17 /hpf (0-5) H 10/12/17 20:44 Urine RBC (Auto) 2 /hpf (0-3) 10/12/17 20:44 Ur Squamous Epith Cells 3 /hpf (0-5) 10/12/17 20:44 Urine Bacteria Few (<OCC) H 10/12/17 20:44 Ur Random Creatinine 22.6 mg/dL 10/13/17 19:33 U Random Total Protein 348.0 mg/dL (0.0-12.0) H 10/13/17 20:10 Ur Random Sodium 33 mmol/L 10/12/17 20:44 - Hospital Course Hospital Course: Patient is a 81-year-old female with a history of diabetes, hypertension, hypercholesterolemia, severe osteoarthritis, chronic renal failure admitted to the hospital with acute worsening nausea vomiting, and unable to keep anything by mouth. Patient also had a fall 2 weeks prior to the hospitalization. Patient was having increasing symptoms of weakness lethargy, and I advised her to go to the emergency room. In the emergency room patient was evaluated. Patient was having increasing shortness of breath, chest discomfort, also weakness, unable to stand up and walk. Initial labs reviewed Elevated creatinine level noted, anemia present. Anion gap noted. Possible dehydration was identified. Patient was also not able to eat well, nausea and vomiting. Initial hospitalization, possible secondary to dehydration, secondary to nausea and vomiting. Intra-abdominal process including pancreatitis, diabetic gastroparesis was noted. Cardiology, GI evaluation was called. Patient started on IV fluid. Course in the hospital. Patient underwent endoscopic evaluation, spoke to the tenter frame back tender. There is no evidence of any acute gastric pathology. CAT scan of the abdomen was done, showing no evidence of any acute pathology. Patient also underwent echocardiogram, normal ejection fraction. Spoke to the mounting inspector. Blood pressure is fairly controlled well. Medications reviewed Nephrology evaluation was called in. Patient tolerated the oral feeding, got better, able to walk with assistance. Patient is clinically much stable and better. She will be discharged home today. She will follow-up as an outpatient Final diagnosis: Acute nausea and vomiting. Gastroparesis. Acute renal insufficiency, with chronic renal failure, secondary to dehydration. Fall, contusion left face. Medications reviewed Patient will continue levothyroxine 75 mg daily Simvastatin 10 mg daily Carvedilol 12.5 mg 2 times a day Glipizide 5 mg twice a day Amlodipine 10 mg daily Hydralazine 50 mg 3 times Tramadol 50 mg as needed. Aspirin 81 mg daily. I spoke to the patient's son in detail. Evaluated, patient will follow-up in my office in 5 days. Discharge Exam - Head Exam Head Exam: ATRAUMATIC, NORMAL INSPECTION Discharge Plan - Follow Up Plan Condition: GOOD Disposition: HOME/ ROUTINE Instructions: Renal Failure Diet (DC) Referrals: Soha Camara MD [Staff Provider] -
--- NOTE | 2017-10-16 23:36 | CP.PCM.PN ---
Subjective - Date & Time of Evaluation Date of Evaluation: 10/16/17 Time of Evaluation: 09:10 - Subjective Subjective: Patient seen and evaluated denies chest pain and dyspnea Objective - Vital Signs/Intake and Output Vital Signs (last 24 hours): Temp Pulse Resp BP Pulse Ox 98.3 F 88 20 165/81 H 100 10/16/17 07:43 10/16/17 07:43 10/16/17 07:43 10/16/17 07:43 10/16/17 14:00 Intake and Output: 10/16/17 10/17/17 18:59 06:59 Intake Total 620 Balance 620 - Labs Labs: 10/16/17 11:32 10/16/17 11:32
== END 2017-10-16 16:57 | disposition home or self-care (01) | DRG 74 ==
LOC: C.ER 13:53 → C.9E 15:10 → C.3T 16:45
PROVIDERS: ADMIT Internal Medicine; ATTEND Internal Medicine
PROC: 0DB78ZX Excision of Stomach, Pylorus, Via Natural or Artificial Opening Endoscopic, Diagnostic (ICD-10-PCS; principal; 2017-10-12 12:07)
DX: E11.43 Type 2 diabetes mellitus with diabetic autonomic (poly)neuropathy (principal); N18.4 Chronic kidney disease, stage 4 (severe); K29.70 Gastritis, unspecified, without bleeding; I12.9 Hypertensive chronic kidney disease with stage 1 through stage 4 chronic kidney disease, or unspecified chronic kidney disease; J45.909 Unspecified asthma, uncomplicated; I65.29 Occlusion and stenosis of unspecified carotid artery; K31.84 Gastroparesis; Z79.84 Long term (current) use of oral hypoglycemic drugs; K22.5 Diverticulum of esophagus, acquired; E86.0 Dehydration; E11.22 Type 2 diabetes mellitus with diabetic chronic kidney disease; D64.9 Anemia, unspecified; Z68.20 Body mass index [BMI] 20.0-20.9, adult; E11.21 Type 2 diabetes mellitus with diabetic nephropathy; Z91.81 History of falling; R11.2 Nausea with vomiting, unspecified; E11.69 Type 2 diabetes mellitus with other specified complication; N28.9 Disorder of kidney and ureter, unspecified

== ENCOUNTER 2018-08-10 09:01 | Outpatient (CLI) | payer MEDICARE | END 2018-08-10 09:02 | disposition home or self-care (01) | LOC: C.VASC 09:01 | DX: N18.6 End stage renal disease (principal) ==